=== PATIENT | female | born 1995 | race Caucasian/White ===

== ENCOUNTER 2018-02-03 22:00 | Inpatient (IN) | payer OTHER ==
[2018-02-03 23:17] LABS: HEMATOCRIT 36.4 % (36.0-47.0); HEMOGLOBIN 12.6 g/dL (12.0-15.5); MEAN CORPUSCULAR HEMOGLOBIN 29.9 pg (27.0-33.4); MEAN CORPUSCULAR HGB CONC 34.6 g/dL (32.0-36.0); MEAN CORPUSCULAR VOLUME 86 fl (80-97); PLATELET COUNT 182 10^3/uL (150-450); RED BLOOD COUNT 4.23 10^6/uL (3.72-5.28); RED CELL DISTRIBUTION WIDTH 14.1 % (11.5-14.0); WHITE BLOOD COUNT 14.4 10^3/uL (4.0-10.5)
[2018-02-03 23:31] LABS: ALANINE AMINOTRANSFERASE 245 U/L (9-52); ALBUMIN 3.7 g/dL (3.5-5.0); ALKALINE PHOSPHATASE 353 U/L (38-126); ANION GAP 11 (5-19); ASPARTATE AMINO TRANSFERASE 233 U/L (14-36); BILIRUBIN,DIRECT 0.6 mg/dL (0.0-0.4); BILIRUBIN,TOTAL 0.8 mg/dL (0.2-1.3); BLOOD UREA NITROGEN 11 mg/dL (7-20); CARBON DIOXIDE 24 mmol/L (22-30); CHLORIDE 105 mmol/L (98-107); GLUCOSE 95 mg/dL (75-110); LIPASE 71.8 U/L (23-300); POTASSIUM 4.2 mmol/L (3.6-5.0); SODIUM 140.2 mmol/L (137-145); TOTAL PROTEIN 7.6 g/dL (6.3-8.2)
[2018-02-03 23:38] LABS: ABSOLUTE LYMPHOCYTES# (MANUAL) 9.2 10^3/uL (0.5-4.7); ABSOLUTE MONOCYTES # (MANUAL) 1.9 10^3/uL (0.1-1.4); ABSOLUTE NEUTROPHILS# (MANUAL) 3.3 10^3/uL (1.7-8.2); BAND NEUTROPHILS % (MANUAL) 1 % (3-5); BASOPHILS % (MANUAL) 0 % (0-2); EOSINOPHILS % (MANUAL) 0 % (0-6); LYMPHOCYTES % (MANUAL) 56 % (13-45); METAMYELOCYTES % (MANUAL) 1 % (0); MONOCYTES % (MANUAL) 13 % (3-13); SEGMENTED NEUTROPHILS % (MAN) 21 % (42-78); TOTAL CELLS COUNTED 100
[2018-02-03 23:39] LABS: PLATELET COMMENT ADEQUATE; RBC MORPHOLOGY COMMENT NORMO-CYTIC/CHROMIC
[2018-02-04] MEDS ORDERED: PROMETHAZINE HCL INJ 25 MG/1 ML VIAL IM ONE (00:35)
[2018-02-04 00:36] LABS: APPEARANCE,URINE CLOUDY; BILIRUBIN,URINE NEGATIVE (NEGATIVE); COLOR,URINE AMBER; GLUCOSE, URINE NEGATIVE (NEGATIVE); KETONES,URINE NEGATIVE (NEGATIVE); LEUKOCYTE ESTERASE,URINE LARGE (NEGATIVE); NITRITE,URINE NEGATIVE (NEGATIVE); PROTEIN,URINE NEGATIVE (NEGATIVE); URINE SPECIFIC GRAVITY 1.018
[2018-02-04] MEDS: NORMAL SALINE 1000 ML 1,000 ML IV PRN ×5 (01:27→14:47)
--- NOTE | 2018-02-04 03:35 | RADIOLOGY REPORT (SQ) ---
EXAM DESCRIPTION: US RETROPERITONEUM CLINICAL HISTORY: 22 years Female, right sided pain COMPARISON: None. TECHNIQUE/LIMITATION: Transabdominal. No Limitation. FINDINGS: 10.3 cm right kidney, 10.9 cm left kidney, and urinary bladder appear normal. Bilateral ureteral jets flow demonstrated at the urinary bladder. IMPRESSION: Normal renal sonogram.
--- NOTE | 2018-02-04 03:40 | RADIOLOGY REPORT (SQ) ---
EXAM DESCRIPTION: US ABDOMEN DOPPLER LIMITED CLINICAL HISTORY: 22 years Female, elevated liver enzymes Comparison: None. LIMITATIONS: None. FINDINGS: Cholecystectomy, liver, a 0.4-cm diameter common bile duct, no intrahepatic ductal dilation, 10-cm right kidney, partially obscured pancreas, visualized vasculature/abdominal aorta, and no significant ascites appear otherwise unremarkable. IMPRESSION: No acute findings. Cholecystectomy.
[2018-02-04] MEDS ORDERED: GENTAMICIN SULFATE INJ 80 MG/2 ML VIAL IV ONE (04:01)
--- NOTE | 2018-02-04 04:07 | ER Document Report ---
ED General - General Chief Complaint: Flank Pain Stated Complaint: VOMITING Time Seen by Provider: 02/04/18 00:27 Notes: Patient is a 22-year-old female presents with complaint of urinary tract infection. She has pain in the right back that radiates around the flank. She has noticed some blood in her urine. She has been having dysuria. She has been seen twice at . The first time was over week ago and she is placed on Bactrim. She not improving therefore she was switched to Cipro. She says that over last 2 days she started vomiting has been unable to keep down the Cipro and feels like she is getting worse and has had fevers at home. She denies abnormal vaginal discharge or bleeding. She said she did have a CT scan. She says she was initially told the CT scan was completely negative. She was then told about 2 days later that she had a very small stone in her kidney. She denies previous history of kidney stones. She has no other complaints at this time. TRAVEL OUTSIDE OF THE [place] IN LAST 30 DAYS: No - Related Data Allergies/Adverse Reactions: amoxicillin Allergy (Verified 02/03/18 22:10) Past Medical History - Social History Smoking Status: Never Smoker Chew tobacco use (# tins/day): No Frequency of alcohol use: None Drug Abuse: None Family History: Reviewed & Not Pertinent Patient has suicidal ideation: No Patient has homicidal ideation: No Renal/ Medical History: Denies: Hx Peritoneal Dialysis Review of Systems - Review of Systems Notes: My Normal Review Basic REVIEW OF SYSTEMS: CONSTITUTIONAL : fevers. EENT: Denies eye, ear, throat, or mouth pain or symptoms. Denies nasal or sinus congestion. RESPIRATORY: Denies cough, cold, or chest congestion. Denies shortness of breath, difficulty breathing, or wheezing. GASTROINTESTINAL: Denies abdominal pain. Denies nausea, vomiting, or diarrhea. Denies constipation. Last BM: GENITOURINARY: Dysuria. Recent urinary tract infection. FEMALE GENITOURINARY: Denies vaginal bleeding, abnormal or irregular periods. MUSCULOSKELETAL: right Sided back pain. SKIN: Denies rash or skin lesions. NEUROLOGICAL: Denies altered mental status or loss of consciousness. Denies headache. Denies weakness or paralysis or loss of use of either side. Denies problems with gait or speech. Denies sensory or motor loss. ALL OTHER SYSTEMS REVIEWED AND NEGATIVE. Physical Exam - Notes Notes: General Appearance: Well nourished, alert, cooperative, no acute distress, no obvious discomfort. Vitals: reviewed, See vital signs table. Head: no swelling or tenderness to the head Eyes: PERRL, EOMI, Conjuctiva clear Mouth: No decreasd moisture Lungs: No wheezing, No rales, No rhonci, No accessory muscle use, good air exchange bilaterally. Heart: Normal rate, Regular rythm, No murmur, no rub Abdomen: Normal BS, soft, No rigidity, No abdominal tenderness, No guarding, no rebound, no abdominal masses, no organomegaly Back: Positive Derrick's sign on the right. Extremities: strength 5/5 in all extremities, good pulses in all extremities, no swelling or tenderness in the extremities, no edema. Skin: warm, dry, appropriate color, no rash Neuro: speech clear, oriented x 3, normal affect, responds appropriately to questions. Course - Re-evaluation Re-evalutation: 02/04/18 04:21 Patient has what appears to be a recurrent pyelonephritis. I have requested records from [facility] to get her urine culture results as well as rest of her labs and ER documentation. Her heart rate is improved after the IV fluids. Blood pressures systolically in the 90s. Being that the patient has had recurrent urine tract infections with appears to be failure to outpatient antibiotics felt appropriate to admit her to the hospital. I did speak with the hospitalist , Dr. Vincent, agrees with the patient. I have ordered gentamicin for the patient being that the patient did not improve with Cipro or Bactrim and also because the patient said she was given a IV antibiotic and able that was a "cousin to penicillin" she developed hives. Dictation of this chart was performed using voice recognition software; therefore, there may be some unintended grammatical errors. - Laboratory Result Diagrams: 02/03/18 22:49 02/03/18 22:49 Laboratory results interpreted by me: 02/03/18 02/03/18 02/03/18 22:15 22:49 22:49 WBC 14.4 H RDW 14.1 H Seg Neuts % (Manual) 21 L Band Neutrophils % 1 L Lymphocytes % (Manual) 56 H Metamyelocytes % 1 H Abs Lymphs (Manual) 9.2 H Abs Monocytes (Manual) 1.9 H Direct Bilirubin 0.6 H AST 233 H ALT 245 H Alkaline Phosphatase 353 H Urine Blood LARGE H Urine Urobilinogen 4.0 H Ur Leukocyte Esterase LARGE H Discharge - Discharge Clinical Impression: Pyelonephritis Condition: Stable Disposition: ADMITTED OBSERVATION Admitting Provider: Hospitalist Unit Admitted: Medical Floor
[2018-02-04] MEDS ORDERED: ACETAMINOPHEN 325 MG TABLET PO ONE (04:08)
[2018-02-04] MEDS ORDERED: MAGNESIUM HYDROXIDE SUSP 30 ML UDCUP PO PRN (04:09)
[2018-02-04] MEDS: HEPARIN SOD (PORCINE) 5,000 UNIT/ML 1 ML SYRINGE SUBCUT SCH ×3 (05:50→21:35)
[2018-02-04] MEDS ORDERED: GENTAMICIN SULFATE 0 MG in DEXTROSE 5%-WATER 100 ML IV NR (06:15)
--- NOTE | 2018-02-04 06:17 | PDOC H&P ---
History of Present Illness Admission Date/PCP: 02/04/18 04:33 Patient complains of: Right-sided flank pain History of Present Illness: MARGY ARVIZU is a 22 year old female with history of migraine and approximately 7 days of flank pain. She presents after diagnosis of urinary tract infection by [facility]. Treated with Bactrim 48 hours initially without clinical improvement she was switched to ciprofloxacin 72 hours. Patient reports urine culture suggested a mixed shena. Patient remains symptomatic with fever of 100.1 right-sided flank pain radiating to the groin with 5 days of Tylenol and antibiotics as above. In the emergency room she is found to have an unremarkable abdominal and renal ultrasound. But a urinalysis suggestive of pyuria and CBC with leukocytosis. She is started on gentamicin given history of penicillin allergy and presumed failure of the Cipro and Bactrim. She denies previous episode or nephrolithiasis. Past Medical History Medical History: None Past Surgical History Past Surgical History: Reports: Cholecystectomy Social History Information Source: Patient Lives with: Family Smoking Status: Never Smoker Frequency of Alcohol Use: None Drugs: None - Advance Directive Resuscitation Status: Full Code Family History Family History: DM, Hypertension Parental Family History Reviewed: Yes Children Family History Reviewed: Yes Sibling(s) Family History Reviewed.: Yes Medication/Allergy Allergies/Adverse Reactions: amoxicillin Allergy (Verified 02/03/18 22:10) Review of Systems Constitutional: ABSENT: chills, fever(s), headache(s), weight gain, weight loss Eyes: ABSENT: visual disturbances Ears: ABSENT: hearing changes Cardiovascular: ABSENT: chest pain, dyspnea on exertion, edema, orthropnea, palpitations Respiratory: ABSENT: cough, hemoptysis Gastrointestinal: ABSENT: abdominal pain, constipation, diarrhea, hematemesis, hematochezia, nausea, vomiting Genitourinary: ABSENT: dysuria, hematuria Musculoskeletal: ABSENT: joint swelling Integumentary: ABSENT: rash, wounds Neurological: ABSENT: abnormal gait, abnormal speech, confusion, dizziness, focal weakness, syncope Psychiatric: ABSENT: anxiety, depression, homidical ideation, suicidal ideation Endocrine: ABSENT: cold intolerance, heat intolerance, polydipsia, polyuria Hematologic/Lymphatic: ABSENT: easy bleeding, easy bruising Physical Exam Vital Signs: Temp Pulse Resp BP Pulse Ox 103/57 L 96 02/04/18 05:06 02/04/18 05:06 General appearance: PRESENT: cooperative, mild distress, morbidly obese Head exam: PRESENT: atraumatic, normocephalic Eye exam: PRESENT: conjunctiva pink, EOMI, PERRLA. ABSENT: scleral icterus Ear exam: PRESENT: normal external ear exam Mouth exam: PRESENT: moist, tongue midline Neck exam: ABSENT: carotid bruit, JVD, lymphadenopathy, thyromegaly Respiratory exam: PRESENT: clear to auscultation oli. ABSENT: rales, rhonchi, wheezes Cardiovascular exam: PRESENT: RRR. ABSENT: diastolic murmur, rubs, systolic murmur Pulses: PRESENT: normal dorsalis pedis pul Vascular exam: PRESENT: normal capillary refill GI/Abdominal exam: PRESENT: normal bowel sounds, soft, tenderness - Right flank and right lower quadrant. ABSENT: ascites, diminished bowel sounds, distended, guarding, mass, organolmegaly, rebound Rectal exam: PRESENT: deferred Extremities exam: PRESENT: full ROM. ABSENT: calf tenderness, clubbing, pedal edema Neurological exam: PRESENT: alert, awake, oriented to person, oriented to place , oriented to time, oriented to situation, CN II-XII grossly intact. ABSENT: motor sensory deficit Psychiatric exam: PRESENT: appropriate affect, normal mood. ABSENT: homicidal ideation, suicidal ideation Skin exam: PRESENT: dry, intact, warm. ABSENT: cyanosis, rash Results Impressions: Renal Ultrasound 02/04/18 00:35 IMPRESSION: Normal renal sonogram. Abdomen Ultrasound 02/04/18 00:36 IMPRESSION: No acute findings. Cholecystectomy. Assessment & Plan - Diagnosis (1) Sepsis Is this a current diagnosis for this admission?: Yes Plan: IV fluid challenge, empiric antibiotics gentamicin and doxycycline given antibiotic failure and penicillin allergy. Follow-up blood and urine culture (2) Pyelonephritis Is this a current diagnosis for this admission?: Yes Plan: Please see #1 (3) LFT elevation Is this a current diagnosis for this admission?: Yes Plan: Fatty liver versus medication. Hold hepatotoxic meds, reevaluate LFTs - Time Time Spent: 30 to 50 Minutes - Inpatient Certification Medical Necessity: Need Close Monitoring Due to Risk of Patient Decompensation
[2018-02-04] MEDS ORDERED: DOXYCYCLINE HYCLATE INJ 100 MG VIAL IV PRN (06:19)
[2018-02-04] MEDS ORDERED: DOXYCYCLINE HYCLATE 200 MG in DEXTROSE 5%-WATER 250 ML IV ONE (06:30)
[2018-02-04 07:06] LABS: HEMATOCRIT 31.9 % (36.0-47.0); HEMOGLOBIN 10.6 g/dL (12.0-15.5); MEAN CORPUSCULAR HEMOGLOBIN 28.7 pg (27.0-33.4); MEAN CORPUSCULAR HGB CONC 33.4 g/dL (32.0-36.0); MEAN CORPUSCULAR VOLUME 86 fl (80-97); PLATELET COUNT 164 10^3/uL (150-450)
[2018-02-04 07:22] LABS: ALANINE AMINOTRANSFERASE 204 U/L (9-52); ALKALINE PHOSPHATASE 278 U/L (38-126); ANION GAP 9 (5-19); ASPARTATE AMINO TRANSFERASE 191 U/L (14-36); BILIRUBIN,DIRECT 0.4 mg/dL (0.0-0.4); BILIRUBIN,TOTAL 0.6 mg/dL (0.2-1.3); BLOOD UREA NITROGEN 9 mg/dL (7-20); CARBON DIOXIDE 24 mmol/L (22-30); CHLORIDE 111 mmol/L (98-107); GLUCOSE 87 mg/dL (75-110); POTASSIUM 3.8 mmol/L (3.6-5.0); TOTAL PROTEIN 6.3 g/dL (6.3-8.2)
[2018-02-04 07:29] LABS: ABSOLUTE MONOCYTES # (MANUAL) 0.6 10^3/uL (0.1-1.4); ABSOLUTE NEUTROPHILS# (MANUAL) 2.3 10^3/uL (1.7-8.2); BASOPHILS % (MANUAL) 1 % (0-2); EOSINOPHILS % (MANUAL) 0 % (0-6); LYMPHOCYTES % (MANUAL) 69 % (13-45); METAMYELOCYTES % (MANUAL) 1 % (0); MONOCYTES % (MANUAL) 5 % (3-13); SEGMENTED NEUTROPHILS % (MAN) 20 % (42-78); TOTAL CELLS COUNTED 100
[2018-02-04 07:31] LABS: ANISOCYTOSIS SLIGHT; TOXIC GRANULATION 1+
[2018-02-04 07:32] LABS: PLATELET COMMENT ADEQUATE
[2018-02-04] MEDS: DOCUSATE SODIUM 100 MG CAPSULE PO SCH ×2 (10:10→17:31)
[2018-02-04] MEDS: DOXYCYCLINE HYCLATE 200 MG in DEXTROSE 5%-WATER 250 ML IV SCH ×2 (10:10→23:32)
[2018-02-04] MEDS: ACETAMINOPHEN 325 MG TABLET PO PRN ×3 (12:03→21:50)
--- NOTE | 2018-02-04 12:12 | Progress Note ---
Provider Note Provider Note: This is a 28-year-old female patient admitted this morning with chief complaint of flank pain due to pyelonephritis. Reportedly patient has been treated with Bactrim and ciprofloxacin to no avail. I seen and examined the patient at bedside. I will assume the role of primary attending for her.
[2018-02-04] MEDS ORDERED: GENTAMICIN SULFATE 180 MG in DEXTROSE 5%-WATER 100 ML IV SCH (14:00)
[2018-02-04] MEDS: GENTAMICIN SULFATE IV SCH ×2 (16:26→21:24)
[2018-02-04] MEDS: NORMAL SALINE IV SCH ×2 (16:26→21:24)
[2018-02-04] MEDS ORDERED: DOXYCYCLINE HYCLATE 200 MG in DEXTROSE 5%-WATER 250 ML IV SCH (18:00)
[2018-02-05] MEDS: GENTAMICIN SULFATE IV SCH ×3 (06:03→21:30)
[2018-02-05] MEDS: NORMAL SALINE IV SCH ×3 (06:03→21:30)
[2018-02-05] MEDS: HEPARIN SOD (PORCINE) 5,000 UNIT/ML 1 ML SYRINGE SUBCUT SCH ×3 (06:09→21:30)
[2018-02-05 07:01] LABS: ALANINE AMINOTRANSFERASE 235 U/L (9-52); ALKALINE PHOSPHATASE 310 U/L (38-126); ANION GAP 10 (5-19); ASPARTATE AMINO TRANSFERASE 212 U/L (14-36); BILIRUBIN,DIRECT 0.5 mg/dL (0.0-0.4); BILIRUBIN,TOTAL 0.5 mg/dL (0.2-1.3); BLOOD UREA NITROGEN 6 mg/dL (7-20); CALCIUM 8.2 mg/dL (8.4-10.2); CARBON DIOXIDE 23 mmol/L (22-30); CHLORIDE 109 mmol/L (98-107); GLUCOSE 91 mg/dL (75-110); SODIUM 141.6 mmol/L (137-145); TOTAL PROTEIN 6.3 g/dL (6.3-8.2)
[2018-02-05 07:12] LABS: HEMATOCRIT 34.6 % (36.0-47.0); HEMOGLOBIN 11.7 g/dL (12.0-15.5); MEAN CORPUSCULAR HEMOGLOBIN 29.1 pg (27.0-33.4); MEAN CORPUSCULAR HGB CONC 33.7 g/dL (32.0-36.0); MEAN CORPUSCULAR VOLUME 86 fl (80-97); PLATELET COUNT 186 10^3/uL (150-450); RED BLOOD COUNT 4.01 10^6/uL (3.72-5.28); RED CELL DISTRIBUTION WIDTH 14.3 % (11.5-14.0); WHITE BLOOD COUNT 12.9 10^3/uL (4.0-10.5)
[2018-02-05 07:33] LABS: ABSOLUTE LYMPHOCYTES# (MANUAL) 9.2 10^3/uL (0.5-4.7); ABSOLUTE MONOCYTES # (MANUAL) 0.3 10^3/uL (0.1-1.4); ABSOLUTE NEUTROPHILS# (MANUAL) 3.4 10^3/uL (1.7-8.2); ANISOCYTOSIS SLIGHT; BASOPHILS % (MANUAL) 0 % (0-2); EOSINOPHILS % (MANUAL) 1 % (0-6); LYMPHOCYTES % (MANUAL) 71 % (13-45); METAMYELOCYTES % (MANUAL) 2 % (0); MONOCYTES % (MANUAL) 2 % (3-13); PLATELET COMMENT ADEQUATE; SEGMENTED NEUTROPHILS % (MAN) 24 % (42-78); TOTAL CELLS COUNTED 100
[2018-02-05] MEDS: DOXYCYCLINE HYCLATE 200 MG in DEXTROSE 5%-WATER 250 ML IV SCH ×2 (09:12→23:00)
[2018-02-05] MEDS: DOCUSATE SODIUM 100 MG CAPSULE PO SCH ×2 (09:12→17:30)
--- NOTE | 2018-02-05 10:34 | PDOC PROGRESS REPORT ---
Subjective Progress Note for:: 02/05/18 Subjective:: Patient reports having restful night. No new complaint. Reason For Visit: SEPSIS UTI NEPHROLITH Physical Exam Vital Signs: Temp Pulse Resp BP Pulse Ox 99.2 F 99 16 123/75 99 02/05/18 08:06 02/05/18 08:06 02/05/18 08:06 02/05/18 08:06 02/05/18 08:06 Intake & Output 02/04/18 02/05/18 02/06/18 06:59 06:59 06:59 Intake Total 0 1840 Output Total 1900 Balance 0 -60 Weight 108.9 kg General appearance: PRESENT: no acute distress Eye exam: PRESENT: conjunctiva pink, EOMI, PERRLA. ABSENT: scleral icterus Neck exam: ABSENT: carotid bruit, JVD, lymphadenopathy, thyromegaly Respiratory exam: PRESENT: clear to auscultation oli. ABSENT: rales, rhonchi, wheezes Cardiovascular exam: PRESENT: RRR. ABSENT: diastolic murmur, rubs, systolic murmur GI/Abdominal exam: PRESENT: normal bowel sounds, soft. ABSENT: distended, guarding, mass, organolmegaly, rebound, tenderness Gentrourinary exam: PRESENT: other - left flank tenderness Results Laboratory Results: 02/05/18 06:27 02/05/18 06:27 02/05/18 02/05/18 06:27 06:27 WBC 12.9 H RBC 4.01 Hgb 11.7 L Hct 34.6 L MCV 86 MCH 29.1 MCHC 33.7 RDW 14.3 H Plt Count 186 Seg Neutrophils % Not Reportable Lymphocytes % Not Reportable Monocytes % Not Reportable Eosinophils % Not Reportable Basophils % Not Reportable Absolute Neutrophils Not Reportable Absolute Lymphocytes Not Reportable Absolute Monocytes Not Reportable Absolute Eosinophils Not Reportable Absolute Basophils Not Reportable Sodium 141.6 Potassium 4.0 Chloride 109 H Carbon Dioxide 23 Anion Gap 10 BUN 6 L Creatinine 0.55 Est GFR ( Amer) > 60 Est GFR (Non-Af Amer) > 60 Glucose 91 Calcium 8.2 L Total Bilirubin 0.5 AST 212 H ALT 235 H Alkaline Phosphatase 310 H Total Protein 6.3 Albumin 3.0 L Impressions: Renal Ultrasound 02/04/18 00:35 IMPRESSION: Normal renal sonogram. Abdomen Ultrasound 02/04/18 00:36 IMPRESSION: No acute findings. Cholecystectomy. Assessment & Plan - Diagnosis (1) Pyelonephritis Is this a current diagnosis for this admission?: Yes Plan: continue Levaquin (2) Sepsis Is this a current diagnosis for this admission?: Yes Plan: As #1 - Time Time Spent with patient: 25-34 minutes
[2018-02-05 14:44] LABS: GENTAMICIN-TROUGH 1.4 ug/mL (<2.0)
[2018-02-05 17:44] LABS: GENTAMICIN-PEAK 6.3 ug/mL (5.0-10.0)
[2018-02-05] MEDS: ACETAMINOPHEN 325 MG TABLET PO PRN (19:35)
[2018-02-06] MEDS: HEPARIN SOD (PORCINE) 5,000 UNIT/ML 1 ML SYRINGE SUBCUT SCH (06:32)
[2018-02-06] MEDS: GENTAMICIN SULFATE IV SCH (06:32)
[2018-02-06] MEDS: NORMAL SALINE IV SCH (06:32)
--- NOTE | 2018-02-06 08:03 | PDOC DISCHARGE SUMMARY ---
General - Admit/Disc Date/PCP Admission Date/Primary Care Provider: 02/04/18 04:33 Discharge Date: 02/06/18 - Discharge Diagnosis (1) Pyelonephritis Is this a current diagnosis for this admission?: Yes (2) Sepsis Is this a current diagnosis for this admission?: Yes - Additional Information Resuscitation Status: Full Code Discharge Diet: Regular Discharge Activity: Activity As Tolerated Prescriptions: Levofloxacin [Levaquin 750 mg Tablet] 750 mg PO DAILY 5 Days #5 tablet Home Medications: Loratadine [Claritin] 10 mg PO DAILYP PRN 02/04/18 Multivit-Minerals/Folic Acid [One-A-Day Vitacraves Gummies] 200 mcg PO DAILY Levofloxacin [Levaquin 750 mg Tablet] 750 mg PO DAILY 5 Days #5 tablet 02/06/18 History of Present Illness History of Present Illness: MARGY ARVIZU is a 22 year old female with history of migraine and approximately 7 days of flank pain. She presents after diagnosis of urinary tract infection by [facility]. Treated with Bactrim 48 hours initially without clinical improvement she was switched to ciprofloxacin 72 hours. Patient reports urine culture suggested a mixed shena. Patient remains symptomatic with fever of 100.1 right-sided flank pain radiating to the groin with 5 days of Tylenol and antibiotics as above. In the emergency room she is found to have an unremarkable abdominal and renal ultrasound. But a urinalysis suggestive of pyuria and CBC with leukocytosis. She is started on gentamicin given history of penicillin allergy and presumed failure of the Cipro and Bactrim. She denies previous episode or nephrolithiasis. Hospital Course Hospital Course: This is 22 YO female admitted for sepsis due to pyelonepritis.Patient failed out patient po two antibiotics treatment.She has been treated with IV levaquin.Patient has responded well, her flank pain and fever subsided and she has been eating and tolerating well .This morning patient seen and exmined at bed side. She is awake , alert and oriented. Her vitals are WNL and she is discharged in stable condition.She is prescribed po Levaquin for 5 days. Physical Exam Vital Signs: Temp Pulse Resp BP Pulse Ox 98.4 F 97 16 109/59 L 96 02/06/18 03:49 02/06/18 03:49 02/06/18 03:49 02/06/18 03:49 02/06/18 03:49 Intake & Output 02/05/18 02/06/18 02/07/18 06:59 06:59 06:59 Intake Total 1840 800 Output Total 1900 500 Balance -60 300 Weight 111 kg General appearance: PRESENT: no acute distress, well-developed, well-nourished Head exam: PRESENT: atraumatic, normocephalic Eye exam: PRESENT: conjunctiva pink, EOMI, PERRLA. ABSENT: scleral icterus Neck exam: ABSENT: carotid bruit, JVD, lymphadenopathy, thyromegaly Respiratory exam: PRESENT: clear to auscultation oli. ABSENT: rales, rhonchi, wheezes Cardiovascular exam: PRESENT: RRR. ABSENT: diastolic murmur, rubs, systolic murmur GI/Abdominal exam: PRESENT: normal bowel sounds, soft. ABSENT: distended, guarding, mass, organolmegaly, rebound, tenderness Extremities exam: PRESENT: full ROM. ABSENT: calf tenderness, clubbing, pedal edema Neurological exam: PRESENT: alert, awake, oriented to person, oriented to place , oriented to time, oriented to situation, CN II-XII grossly intact. ABSENT: motor sensory deficit Psychiatric exam: PRESENT: appropriate affect, normal mood. ABSENT: homicidal ideation, suicidal ideation Results Laboratory Results: 02/05/18 06:27 02/05/18 06:27 Impressions: Renal Ultrasound 02/04/18 00:35 IMPRESSION: Normal renal sonogram. Abdomen Ultrasound 02/04/18 00:36 IMPRESSION: No acute findings. Cholecystectomy. Qualifiers - * PATIENT BEING DISCHARGED WITH ANY OF THE FOLLOWING DIAGNOSIS: No
[2018-02-06 09:17] VITALS: BP 113/65
== END 2018-02-06 10:00 | disposition home or self-care (01) | DRG 872 ==
LOC: ER 22:00 → EH 02-04 04:33 → OBSVTOIN 02-04 04:33 → 2N 02-04 05:25
PROVIDERS: ADMIT Internal Medicine; ATTEND Internal Medicine
DX: A41.9 Sepsis, unspecified organism (principal); N12 Tubulo-interstitial nephritis, not specified as acute or chronic; G43.909 Migraine, unspecified, not intractable, without status migrainosus; Z88.0 Allergy status to penicillin; Z90.49 Acquired absence of other specified parts of digestive tract; Z83.3 Family history of diabetes mellitus; Z82.49 Family history of ischemic heart disease and other diseases of the circulatory system
CPT/HCPCS: 36415; 76705; 76770; 80053; 80170; 81001; 81025; 83690; 85025; 87040; 87086; 93976; 96361; 96365; 96372; 99285; J1580; J1644; J2550; J3490; J7030; J7060

== ENCOUNTER 2018-03-29 17:01 | Emergency (ER) | payer OTHER ==
[2018-03-29 17:07] VITALS: BP 128/71
[2018-03-29] MEDS ORDERED: ACETAMINOPHEN 325 MG TABLET PO ONE (17:35)
--- NOTE | 2018-03-29 17:39 | ER Document Report ---
ED Extremity Problem, Lower - General Chief Complaint: Ankle Injury Stated Complaint: FALL/ANKLE PAIN Time Seen by Provider: 03/29/18 17:20 Mode of Arrival: Wheelchair Information source: Patient Notes: 22-year-old female presents to ED for complaint of pain to the left ankle. She states she fell down the stairs on because she was clumsy causing an abrasion to her leg then she fell Wednesday on her way home from work causing pain to the ankle. She states she has been trying to walk on it but is too painful to walk on now. Patient is alert oriented respirations regular and unlabored speaks in full sentences and actually stood up at the bedside pivoted and sat down on the bed. TRAVEL OUTSIDE OF THE [place] IN LAST 30 DAYS: No - HPI Patient complains to provider of: Injury, Pain, Swelling Location: Ankle - Left Occurred: Other - Wednesday Quality of pain: Throbbing Severity: Moderate Pain Level: 4 Context: Fell, Other - During her ankle Recent injury: Yes Associated symptoms: Painful ambulation Exacerbated by: Hanging down, Movement, Walking Relieved by: Elevation, Ice, Rest - Related Data Allergies/Adverse Reactions: amoxicillin Allergy (Verified 02/03/18 22:10) Past Medical History - General Information source: Patient - Social History Smoking Status: Never Smoker Cigarette use (# per day): No Chew tobacco use (# tins/day): No Smoking Education Provided: No Frequency of alcohol use: None Drug Abuse: None Lives with: Family Family History: DM, Hypertension Patient has suicidal ideation: No Patient has homicidal ideation: No - Past Medical History Cardiac Medical History: Reports: None Pulmonary Medical History: Reports: None EENT Medical History: Reports: None Neurological Medical History: Reports: None Endocrine Medical History: Reports: None Renal/ Medical History: Reports: Other - Frequent kidney infections Malignancy Medical History: Reports: None GI Medical History: Reports: None Musculoskeletal Medical History: Reports Hx Musculoskeletal Deformity, Reports Hx Musculoskeletal Trauma Skin Medical History: Reports None Psychiatric Medical History: Reports: None Past Surgical History: Reports: Hx Adenoidectomy, Hx Cholecystectomy, Hx Gynecologic Surgery - Nexplanon, Hx Orthopedic Surgery - knee surgery, Hx Tonsillectomy - Immunizations Immunizations up to date: Yes Hx Diphtheria, Pertussis, Tetanus Vaccination: Yes Review of Systems - Review of Systems Constitutional: No symptoms reported EENT: No symptoms reported Cardiovascular: No symptoms reported Respiratory: No symptoms reported Gastrointestinal: No symptoms reported Genitourinary: No symptoms reported Female Genitourinary: No symptoms reported Musculoskeletal: Ankle swelling - Pain swelling left ankle with bruising to the left calf Skin: Change in color - Left calf and ankle Hematologic/Lymphatic: No symptoms reported Neurological/Psychological: No symptoms reported -: Yes All other systems reviewed and negative Physical Exam - Vital signs Vitals: Temp Pulse Resp BP Pulse Ox 98.9 F 92 18 128/71 H 99 03/29/18 17:05 03/29/18 17:05 03/29/18 17:05 03/29/18 17:05 03/29/18 17:05 Interpretation: Normal - General General appearance: Appears well, Alert - HEENT Head: Normocephalic, Atraumatic Eyes: Normal Pupils: PERRL - Respiratory Respiratory status: No respiratory distress Chest status: Nontender Breath sounds: Normal Chest palpation: Normal - Cardiovascular Rhythm: Regular Heart sounds: Normal auscultation Murmur: No - Abdominal Inspection: Normal Distension: No distension Bowel sounds: Normal Tenderness: Nontender Organomegaly: No organomegaly - Back Back: Normal, Nontender - Extremities General upper extremity: Normal inspection, Nontender, Normal color, Normal ROM , Normal temperature General lower extremity: Normal temperature. No: Don's sign Calf: Tender, Ecchymosis Ankle: Tender, Ecchymosis, Edema, Limited ROM - Due to pain. No: Unable to bear weight - Painful ambulation - Neurological Neuro grossly intact: Yes Cognition: Normal Orientation: AAOx4 [place] Coma Scale Eye Opening: Spontaneous Kevin Coma Scale Verbal: Oriented [place] Coma Scale Motor: Obeys Commands Kevin Coma Scale Total: 15 Speech: Normal Motor strength normal: LUE, RUE, LLE, RLE Sensory: Normal - Psychological Associated symptoms: Normal affect, Normal mood - Skin Skin Temperature: Warm Skin Moisture: Dry Skin Color: Normal Course - Re-evaluation Re-evalutation: 03/29/18 17:51 Discussed x-ray with patient and family and written report of x-ray given to patient. Patient was treated with a stirrup splint Keith wrap and crutches. Patient was instructed on elevation ice and ibuprofen. Patient to follow-up with primary doctor and orthopedics. The patient is nontoxic appearing with stable vitals. They are afebrile. Ankle exam shows no deformities with no obvious ligament instability. There is a normal pulse and sensation distally. There is no redness or signs of infection. X-rays show no acute fract Patient will be instructed to follow-up with not better in 1 week, sooner for increasing pain, fever, redness, numbness, tingling, weakness, any further concerns. Patient will be instructed to rest, ice, elevate their ankle. - Vital Signs Vital signs: Temp Pulse Resp BP Pulse Ox 98.9 F 92 18 128/71 H 99 03/29/18 17:05 03/29/18 17:05 03/29/18 17:05 03/29/18 17:05 03/29/18 17:05 - Diagnostic Test Radiology reviewed: Image reviewed, Reports reviewed Procedures - Immobilization Left Ankle Time completed: 18:05 Immobilizer type: Keith wrap, Ankle stirrup, Crutches Performed by: TRACIE Post-Proc Neuro Vasc Exam: Normal Alignment checked and good: Yes Discharge - Discharge Clinical Impression: Left ankle sprain Qualifiers: Encounter type: initial encounter Involved ligament of ankle: unspecified ligament Qualified Code(s): S93.402A - Sprain of unspecified ligament of left ankle, initial encounter Condition: Stable Disposition: HOME, SELF-CARE Additional Instructions: SPRAINED ANKLE: Your sprained ankle results from stretching or tearing of the ligaments which support the ankle. This usually results from twisting the foot inward and under. The ligaments will require time and protection in order to heal properly. Many ankle sprains are quite disabling, and should be taken seriously. The usual treatment for an ankle sprain is cold packs; protection with tape , splints, or wraps; elevation; and staying off the ankle for at least a day. As the ankle improves, you can walk IF it's not painful to bear weight. Sports are best postponed until healing is complete. More serious sprains usually require strengthening exercises after early healing. Your physician has assessed the seriousness of the ligament injury to your ankle. However, the treatment may change, depending on how your ankle progresses. If further exams were recommended, it is important that you follow through. Call the doctor if your foot becomes numb, painful, or severely swollen. KEITH WRAP: A compression dressing (keith wrap) has been placed. This helps hold the area still. It limits swelling and internal bleeding. The wrap should be comfortably snug -- not tight. You should feel a sense of pressure, but not severe pain under the wrap. Unless the physician tells you otherwise, you can adjust the wrap for comfort. If the wrap causes symptoms suggesting it's too tight -- uncomfortable pressure, swelling or discoloration beyond the wrap, numbness, or severe pain - - you must loosen the wrap. If these symptoms don't resolve promptly, return for re-evaluation. ANKLE STIRRUP SPLINT: You are to use an ankle brace called a stirrup splint. This type of brace allows you to place greater stresses on the ankle without risk of re-injury, and is often used for more severe ankle injuries such as avulsion fractures and ligament ruptures. The splint can be worn over a sock or tape. For proper support, wear the splint with a shoe over it. It's important that the splint fit properly. Adjust the heel tension, if needed. If your splint has air bladders, peel back the bottom of each air bladder, then move the Velcro attachment of the heel strap up or down. Air bladder pressure can be adjusted by pulling up the valve at the top, threading the air tube down into the main bladder, then blowing air into the bladder or squeezing it out. The two sides of the stirrup can be moved forward or back on your ankle by changing the attachment of the main straps. If you are unable to use the ankle comfortably in the splint, return for re -evaluation. USE OF CRUTCHES: The doctor has recommended that you not bear weight at this time. You will need to use crutches. Adjust the crutches so the tops come to about two inches under the armpit while you are standing upright. Use your hands -- not your armpits -- to support your weight. To get into a chair, support yourself with one crutch on the injured side. Hold the chair with the other hand, then lower yourself while putting all your weight on the good leg. Going up stairs is `good leg up, step up, then bring up crutches and bad leg.' Down stairs is `bad leg and crutches down, then bring good leg down.' If you develop numbness or swelling in an arm or hand, you are using the crutches incorrectly. Return if you are having any problems with the crutches. ICE & ELEVATION: Apply ice packs frequently against the painful area. Many different schedules are recommended, such as "20 minutes on, 20 minutes off" or "one hour ice, two hours rest." If you need to work, you may need to go longer between ice treatments. You should plan to have the area ice packed AT LEAST one- fourth of the time. The ice should be applied over the wrap, tape, or splint, or over a layer of cloth -- not directly against the skin. Some ice bags have a built-in cloth and can be put directly on the skin. Your injured part should be elevated as much as possible over the next 48 hours. Try to keep the injury above the level of the heart. Avoid use of the injured area. Elevation and rest will decrease the swelling. USE OF DYES-UBH-BVEHDMG IBUPROFEN: Ibuprofen (Advil, Nuprin, Medipren, Motrin IB) is a medication for fever and pain control. In addition, it has anti- inflammatory effects which may be beneficial, especially in the treatment of injuries. It's best to take ibuprofen with food. Persons with ulcer disease or allergy to aspirin should notify their physician of this before taking ibuprofen. Ibuprofen can be given every four to six hours, for a total of four doses daily. Age Pain or fever dose Antiinflammatory dose 6-8 yr 200 mg (1 tab) 200 mg (1 tab) 9-11 yr 200 mg (1 tab) 200-400 mg (1-2 tab) 11-14 yr 200-400 mg (1-2 tab) 400 mg (2 tab) 15-adult 400 mg (2 tab) 600 mg (3 tab) FOLLOW-UP CARE: If you have been referred to a physician for follow-up care, call the physician s office for an appointment as you were instructed or within the next two days. If you experience worsening or a significant change in your symptoms, notify the physician immediately or return to the Emergency Department at any time for re-evaluation. Forms: Elevated Blood Pressure, Return to Work Referrals: AUGUSTINE MUIR MD [Primary Care Provider] - Follow up as needed [facility] [Provider Group] - Follow up as needed
--- NOTE | 2018-03-29 17:41 | RADIOLOGY REPORT (SQ) ---
EXAM DESCRIPTION: ANKLE LEFT COMPLETE COMPLETED DATE/TIME: 03/29/2018 5:31 pm REASON FOR STUDY: Pain s/p fall . States that can't walk on it. COMPARISON: None. NUMBER OF VIEWS: Three views left ankle. LIMITATIONS: None. FINDINGS: Normal bone density. Maintained mortise. No effusion. Small relatively well-circumscrib ed calcification inferior to the lateral malleolus may represent an old avulsion. Mild soft tissue s welling about the ankle, however this looks more pronounced medially. OTHER: No other significant finding. IMPRESSION: As above. Suspect and old avulsive injury off the lateral malleolus. Mild soft tissue swelling. TECHNICAL DOCUMENTATION: JOB ID: [id number] Reading location - IP/workstation name: [email or web address]
== END 2018-03-29 18:00 | disposition home or self-care (01) ==
LOC: ER 17:01
PROC: 2W3RX1Z Immobilization of Left Lower Leg using Splint (ICD-10-PCS; principal; 2018-03-29)
DX: S93.402A Sprain of unspecified ligament of left ankle, initial encounter (principal); W10.9XXA Fall (on) (from) unspecified stairs and steps, initial encounter; Z88.0 Allergy status to penicillin; Z90.49 Acquired absence of other specified parts of digestive tract
CPT/HCPCS: 99283; 73610; L4350

== ENCOUNTER → 2018-04-18 | Outpatient (CLI) | payer OTHER ==
--- NOTE | 2018-04-18 14:58 | RADIOLOGY REPORT (SQ) ---
EXAM DESCRIPTION: CT ABD/PELVIS NO ORAL OR IV COMPLETED DATE/TIME: 04/18/2018 2:13 pm REASON FOR STUDY: MICROHEMATURIA R31.29 OTHER MICROSCOPIC HEMATURIA COMPARISON: None. TECHNIQUE: CT scan of the abdomen and pelvis performed without intravenous or oral contrast. Images reviewed with lung, soft tissue, and bone windows. Reconstructed coronal and sagittal MPR images revi ewed. All images stored on PACS. All CT scanners at this facility use dose modulation, iterative reconstruction, and/or weight based d osing when appropriate to reduce radiation dose to as low as reasonably achievable (ALARA). [facility]: Dose Right [facility]: CareDose [facility]: Dose Right [facility]: Teradose 4D [facility]: [employer] RADIATION DOSE: CT Rad equipment meets quality standard of care and radiation dose reduction techniq ues were employed. CTDIvol: 12.0 mGy. DLP: 694 mGy-cm.mGy. LIMITATIONS: None. FINDINGS: LOWER CHEST: No significant findings. No nodules or infiltrates. NON-CONTRASTED LIVER, SPLEEN, ADRENALS: Evaluation limited by lack of IV contrast. No identified sign ificant masses. PANCREAS: No masses. No peripancreatic inflammatory changes. GALLBLADDER: Surgically absent RIGHT KIDNEY AND URETER: No suspicious masses. Assessment limited by lack of IV contrast. No signif icant calcifications. No hydronephrosis or hydroureter. LEFT KIDNEY AND URETER: No suspicious masses. Assessment limited by lack of IV contrast. No signifi cant calcifications. No hydronephrosis or hydroureter. AORTA AND RETROPERITONEUM: No aneurysm. No retroperitoneal masses or adenopathy. BOWEL AND PERITONEAL CAVITY: No obvious masses or inflammatory changes. No free fluid. APPENDIX: Normal. PELVIS, BLADDER, AND ABDOMINAL WALL:No abnormal masses. No free fluid. Bladder normal. Normal size f emale pelvic organs. BONES: No significant findings. OTHER: No other significant finding. IMPRESSION: NO SIGNIFICANT OR ACUTE PROCESS IN THE ABDOMEN OR PELVIS. COMMENT: Quality ID # [id number]: Final reports with documentation of one or more dose reduction techniques (e.g., Automated exposure control, adjustment of the mA and/or kV according to patient size, use of iterative reconstruction technique) TECHNICAL DOCUMENTATION: JOB ID: [id number] [employer]- All Rights Reserved Reading location - IP/workstation name: [email or web address]
== END ==
LOC: RAD 13:56
PROVIDERS: ATTEND Urology
DX: R31.29 Other microscopic hematuria (principal)
CPT/HCPCS: 74176

== ENCOUNTER → 2018-04-29 | Outpatient (CLI) | payer OTHER ==
[2018-04-29 11:38] LABS: APPEARANCE,URINE SLIGHTLY-CLOUDY; BILIRUBIN,URINE NEGATIVE (NEGATIVE); CALCIUM OXALATE CRYSTALS,URINE FEW /HPF; COLOR,URINE YELLOW; GLUCOSE, URINE NEGATIVE (NEGATIVE); KETONES,URINE NEGATIVE (NEGATIVE); LEUKOCYTE ESTERASE,URINE LARGE (NEGATIVE); NITRITE,URINE NEGATIVE (NEGATIVE); PROTEIN,URINE NEGATIVE (NEGATIVE); URINE SPECIFIC GRAVITY 1.031
== END ==
LOC: OD 09:32
PROVIDERS: ATTEND Urology
DX: R31.29 Other microscopic hematuria (principal)
CPT/HCPCS: 81001

== ENCOUNTER 2018-05-03 15:13 | Emergency (ER) | payer OTHER ==
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
[2018-05-03 19:55] VITALS: BP 116/62
== END 2018-05-03 20:05 | disposition home or self-care (01) ==
LOC: ER 15:13
DX: S00.93XA Contusion of unspecified part of head, initial encounter (principal); S80.02XA Contusion of left knee, initial encounter; M79.1 Myalgia; H92.02 Otalgia, left ear; M25.562 Pain in left knee; V87.7XXA Person injured in collision between other specified motor vehicles (traffic), initial encounter
CPT/HCPCS: 70450; 99284

== ENCOUNTER 2019-03-25 19:39 | Observation (INO) | payer OTHER ==
[2019-03-25] MEDS ORDERED: ONDANSETRON HCL INJ/PF 4 MG/2 ML SDV IV ONE (20:55)
--- NOTE | 2019-03-25 20:57 | ER Document Report ---
ED Medical Screen (RME) - General Chief Complaint: Nausea Stated Complaint: NAUSEA Time Seen by Provider: 03/25/19 20:53 Primary Care Provider: AUGUSTINE MUIR MD [Primary Care Provider] - Follow up as needed Notes: Patient is 23-year-old female history of cholecystectomy presents to the emergency department for generalized nausea, vomiting for the last week. Patient states she is intermittently had right lower abdominal pain although currently is denying any pain. Patient states "it comes in waves." Patient's denying any diarrhea, fever, dysuria, vaginal discharge. GENERAL: Alert, interacts well. No acute distress. ABDOMEN: Soft, non-tender. Non-distended. Bowel sounds present in all 4 quadrants. I have greeted and performed a rapid initial assessment of this patient. A comprehensive ED assessment and evaluation of the patient, analysis of test results and completion of the medical decision making process will be conducted by additional ED providers. I have specifically instructed the patient or family members with the patient to immediately return to any nursing staff should anything change in the patient's condition or with their chief complaint. This medical record was dictated with voice recognizing software. There may be grammatical, syntax errors that are unintended. TRAVEL OUTSIDE OF THE [place] IN LAST 30 DAYS: No - Related Data Allergies/Adverse Reactions: amoxicillin Allergy (Verified 03/25/19 20:49) Past Medical History Renal/ Medical History: Denies: Hx Peritoneal Dialysis Musculoskeltal Medical History: Reports Hx Musculoskeletal Deformity, Reports Hx Musculoskeletal Trauma Past Surgical History: Reports: Hx Adenoidectomy, Hx Cholecystectomy, Hx Gynecologic Surgery - Nexplanon, Hx Myringotomy, Hx Orthopedic Surgery - knee surgery, Hx Tonsillectomy - Immunizations Immunizations up to date: Yes Hx Diphtheria, Pertussis, Tetanus Vaccination: Yes History of Influenza Vaccine for 06/2017 - 11/2017 Season: Yes Influenza Administration Date for 06/2017 - 11/2017 Season: 06/13/17 Physical Exam - Vital signs Vitals: Temp Pulse Resp BP Pulse Ox 98.4 F 79 15 129/68 H 100 03/25/19 19:48 03/25/19 19:48 03/25/19 19:48 03/25/19 19:48 03/25/19 19:48 Course - Vital Signs Vital signs: Temp Pulse Resp BP Pulse Ox 98.4 F 79 15 129/68 H 100 03/25/19 19:48 03/25/19 19:48 03/25/19 19:48 03/25/19 19:48 03/25/19 19:48 Doctor's Discharge - Discharge Referrals: AUGUSTINE MUIR MD [Primary Care Provider] - Follow up as needed
[2019-03-25 21:31] LABS: ABSOLUTE BASOPHILS # (AUTO) 0.1 10^3/uL (0.0-0.2); ABSOLUTE EOSINOPHILS # (AUTO) 0.2 10^3/uL (0.0-0.6); ABSOLUTE LYMPHOCYTES (AUTO) 4.5 10^3/uL (0.5-4.7); ABSOLUTE MONOCYTES (AUTO) 0.7 10^3/uL (0.1-1.4); ABSOLUTE NEUT (AUTO) 6.4 10^3/uL (1.7-8.2); BASOPHILS % (AUTO) 0.7 % (0-2); EOSINOPHILS % (AUTO) 1.5 % (0-6); HEMATOCRIT 36.1 % (36.0-47.0); MEAN CORPUSCULAR HEMOGLOBIN 29.1 pg (27.0-33.4); MEAN CORPUSCULAR HGB CONC 33.2 g/dL (32.0-36.0); MEAN CORPUSCULAR VOLUME 88 fl (80-97); PLATELET COUNT 353 10^3/uL (150-450); RED BLOOD COUNT 4.13 10^6/uL (3.72-5.28); RED CELL DISTRIBUTION WIDTH 13.7 % (11.5-14.0); SEGMENTED NEUTROPHILS % (AUTO) 53.8 % (42-78); TOTAL CELLS COUNTED % (AUTO) 100 %; WHITE BLOOD COUNT 11.9 10^3/uL (4.0-10.5)
[2019-03-25 21:46] LABS: APPEARANCE,URINE SLIGHTLY-CLOUDY; BILIRUBIN,URINE NEGATIVE (NEGATIVE); COLOR,URINE YELLOW; GLUCOSE, URINE NEGATIVE (NEGATIVE); KETONES,URINE NEGATIVE (NEGATIVE); LEUKOCYTE ESTERASE,URINE LARGE (NEGATIVE); NITRITE,URINE NEGATIVE (NEGATIVE); PROTEIN,URINE NEGATIVE (NEGATIVE); URINE SPECIFIC GRAVITY 1.016; UROBILINOGEN,URINE NEGATIVE mg/dL (<2.0)
[2019-03-25 21:51] LABS: ALANINE AMINOTRANSFERASE 56 U/L (9-52); ALBUMIN 4.4 g/dL (3.5-5.0); ALKALINE PHOSPHATASE 98 U/L (38-126); ANION GAP 11 (5-19); ASPARTATE AMINO TRANSFERASE 32 U/L (14-36); BILIRUBIN,DIRECT 0.2 mg/dL (0.0-0.4); BILIRUBIN,TOTAL 0.4 mg/dL (0.2-1.3); BLOOD UREA NITROGEN 12 mg/dL (7-20); CALCIUM 9.3 mg/dL (8.4-10.2); CARBON DIOXIDE 25 mmol/L (22-30); CHLORIDE 106 mmol/L (98-107); GLUCOSE 93 mg/dL (75-110); LIPASE 72.5 U/L (23-300); SODIUM 141.6 mmol/L (137-145); TOTAL PROTEIN 7.6 g/dL (6.3-8.2)
[2019-03-26] MEDS ORDERED: ONDANSETRON HCL INJ/PF 4 MG/2 ML SDV ONE ×2 (00:53→00:55)
[2019-03-26] MEDS ORDERED: METOCLOPRAMIDE HCL 10 MG TABLET PO ONE (00:59)
[2019-03-26] MEDS ORDERED: NITROFURANTOIN MONOHYD/M-CRYST 100 MG CAPSULE PO ONE (00:59)
--- NOTE | 2019-03-26 01:15 | ER Document Report ---
ED GI/ - General Chief Complaint: Nausea Stated Complaint: NAUSEA Time Seen by Provider: 03/25/19 20:53 Primary Care Provider: AUGUSTINE MUIR MD [ACTIVE STAFF] - Follow up as needed Mode of Arrival: Ambulatory Information source: Patient, Parent TRAVEL OUTSIDE OF THE [place] IN LAST 30 DAYS: No - HPI Patient complains to provider of: Abdominal pain - Right lower quadrant., Other - Nausea Onset: Last week Quality of pain: Dull Severity at maximum: Mild Severity in ED: Mild Pain Level: 1 Location: RLQ Vaginal bleeding (Compared to normal period): None OB ultrasound done: No vitamins taken: No Sexual history: Active Associated symptoms: Nausea Exacerbated by: Denies Relieved by: Denies Similar symptoms previously: No Recently seen / treated by doctor: No - Related Data Allergies/Adverse Reactions: amoxicillin Allergy (Verified 03/25/19 20:49) Past Medical History - General Information source: Patient - Social History Smoking Status: Never Smoker Family History: DM, Hypertension Patient has suicidal ideation: No Patient has homicidal ideation: No Renal/ Medical History: Denies: Hx Peritoneal Dialysis Musculoskeletal Medical History: Reports Hx Musculoskeletal Deformity, Reports Hx Musculoskeletal Trauma Past Surgical History: Reports: Hx Adenoidectomy, Hx Cholecystectomy, Hx Gynecologic Surgery - Nexplanon, Hx Myringotomy, Hx Orthopedic Surgery - knee surgery, Hx Tonsillectomy - Immunizations Immunizations up to date: Yes Hx Diphtheria, Pertussis, Tetanus Vaccination: Yes Review of Systems - Review of Systems Constitutional: No symptoms reported EENT: No symptoms reported Cardiovascular: No symptoms reported Respiratory: No symptoms reported Gastrointestinal: Abdominal pain - Right lower quadrant., Nausea Genitourinary: No symptoms reported Female Genitourinary: No symptoms reported Musculoskeletal: No symptoms reported Skin: No symptoms reported Hematologic/Lymphatic: No symptoms reported Neurological/Psychological: No symptoms reported -: Yes All other systems reviewed and negative Physical Exam - Vital signs Vitals: Temp Pulse Resp BP Pulse Ox 98.4 F 79 15 129/68 H 100 03/25/19 19:48 03/25/19 19:48 03/25/19 19:48 03/25/19 19:48 03/25/19 19:48 Interpretation: Normal - General General appearance: Appears well, Alert In distress: None - HEENT Head: Normocephalic, Atraumatic Eyes: Normal Pupils: PERRL - Respiratory Respiratory status: No respiratory distress Chest status: Nontender Breath sounds: Normal Chest palpation: Normal - Cardiovascular Rhythm: Regular Heart sounds: Normal auscultation Murmur: No - Abdominal Inspection: Normal Distension: No distension Bowel sounds: Normal Tenderness: Tender - Right lower quadrant tenderness to palpation. Organomegaly: No organomegaly - Back Back: Normal, Nontender - Extremities General upper extremity: Normal inspection, Nontender, Normal color, Normal ROM, Normal temperature General lower extremity: Normal inspection, Nontender, Normal color, Normal ROM, Normal temperature, Normal weight bearing. No: Don's sign - Neurological Neuro grossly intact: Yes Cognition: Normal Orientation: AAOx4 Kevin Coma Scale Eye Opening: Spontaneous [place] Coma Scale Verbal: Oriented Kevin Coma Scale Motor: Obeys Commands Kevin Coma Scale Total: 15 Speech: Normal Motor strength normal: LUE, RUE, LLE, RLE Sensory: Normal - Psychological Associated symptoms: Normal affect, Normal mood - Skin Skin Temperature: Warm Skin Moisture: Dry Skin Color: Normal Course - Re-evaluation Re-evalutation: 03/26/19 03:01 I discussed with the patient her lab results and the results of the transvaginal ultrasound. I also informed her that she will be admitted to the hospital for REJECTOR evaluation. Patient understood and is in agreement for this admission. - Vital Signs Vital signs: Temp Pulse Resp BP Pulse Ox 98.9 F 86 17 116/67 97 03/26/19 02:40 03/26/19 02:40 03/26/19 02:40 03/26/19 02:40 03/26/19 02:40 - Laboratory Result Diagrams: 03/25/19 21:08 03/25/19 21:08 Laboratory results interpreted by me: 03/25/19 03/25/19 03/25/19 21:08 21:08 21:08 WBC 11.9 H Creatinine 0.50 L ALT 56 H Beta HCG, Quant Ur Leukocyte Esterase LARGE H Urine Ascorbic Acid 20 H Urine HCG, Qual POSITIVE H 03/25/19 21:08 WBC Creatinine ALT Beta HCG, Quant 336.89 H Ur Leukocyte Esterase Urine Ascorbic Acid Urine HCG, Qual - Diagnostic Test Radiology reviewed: Reports reviewed Radiology results interpreted by me: 03/26/19 03:01 Transvaginal ultrasound showed a complex cyst cyst at the right adnexa and no IUP. This is concerning for ectopic . - Transfer of Care Notes: 03/26/19 03:02 I consulted the REJECTOR doctor plant production worker Dr Davidson Bee and he wants patient admitted in the hospital for further evaluation regarding concern for ectopic . Discharge - Discharge Clinical Impression: Early stage of UTI (urinary tract infection) Qualifiers: Urinary tract infection type: acute cystitis Hematuria presence: without hematuria Qualified Code(s): N30.00 - Acute cystitis without hematuria Abdominal pain Qualifiers: Abdominal location: right lower quadrant Qualified Code(s): R10.31 - Right lower quadrant pain Condition: Stable Disposition: ADMITTED INPATIENT Admitting Provider: Dr Davidson Bee. Unit Admitted: Labor and Delivery Referrals: AUGUSTINE MUIR MD [ACTIVE STAFF] - Follow up as needed
--- NOTE | 2019-03-26 02:39 | RADIOLOGY REPORT (SQ) ---
EXAM: US Pelvis Transvaginal CLINICAL DATA: 23-year-old female with right lower quadrant pain and positive TECHNICAL DATA: Ultrasound imaging of the pelvis was performed endovaginally on 03/26/2019 at 1:23 AM. COMPARISONS: None FINDINGS: The uterus is normal in size, shape and echogenicity and measures 9.0 x 5.0 x 6.0 cm. There is no evidence of an intrauterine gestational sac. The cervix measures 2.8 cm in length. There is a small focal avascular area of decreased echogenicity within the right-sided the uterus which measures 1.0 x 1.1 x 1.3 cm. The right ovary measures 3.9 x 3.3 x 3.1 cm. The right ovary contains a complex cyst measuring 2.6 x 2.0 x 2.3 cm.. Doppler imaging demonstrates normal pulsed and color Doppler flow. The left ovary measures 3.2 x 1.7 x 1.6 cm. The left ovary is normal in size, shape and echogenicity. Doppler imaging demonstrates normal pulsed and color Doppler flow. There is no free fluid in the pelvis. IMPRESSION: 1. No evidence of an intrauterine gestational sac. 2. Complex cyst arising from the right ovary with a maximum dimension of 2.6 cm. Correlate with beta hCG. In the absence of an intrauterine gestational sac, an ectopic is not excluded at this time. 3. Small nonspecific avascular cystic area along the right side of the uterus measuring 1.3 cm in maximum dimension.
[2019-03-26] MEDS ORDERED: NORMAL SALINE 1000 ML 1,000 ML IV PRN (05:03)
[2019-03-26 11:23] VITALS: BP 118/59
--- NOTE | 2019-03-26 14:43 | Discharge Summary ---
Discharge Summary (SDC) - Discharge Final Diagnosis: abdominal pain Discharge Date: 03/26/19 Condition: Stable Forms: Discharge POC-Adult Referrals: [facility] [Provider Group] (Follow up in 1 week) Discharge Diet: As Tolerated Discharge Activity: Activity As Tolerated Home Care Assistance: None Needed Report the Following to Your Physician Immediately: Increase in Pain, Fever over 101 Degrees, Unusual Bleeding
--- NOTE | 2019-03-27 14:49 | HISTORY AND PHYSICAL E ---
History and Physical NAME: MARGY ARVIZU : 1995 AGE: 23Y ADMITTED: 03/26/2019 ROOM: 228 HISTORY OF PRESENT CONDITION: The patient is a 23-year-old, 2, para 1-0-0-1 (last menstrual period unsure), who presented to the emergency room with nausea, vomiting, and cramping. She was found to be with a beta of 337. Ultrasound revealed a right ovarian cyst measuring 2.6 x 2.0 x 2.3 cm, with an empty uterus. She denied vaginal bleeding. MEDICAL/SURGICAL HISTORY: 1. Cholecystectomy in 2013. 2. Right knee surgery in 2012. 3. Tonsillectomy as a child. OBSTETRICS HISTORY: Normal spontaneous vaginal delivery in 2017. GYNECOLOGIC HISTORY: Menarche age 14 or 15, irregular cycles. Denies dysmenorrhea. ALLERGIES: AMOXICILLIN. SOCIAL HISTORY: The patient denies. There is no tobacco or drug use. REVIEW OF SYSTEMS: All systems were reviewed and were negative other than what was noticed in the History of Present Condition. PHYSICAL EXAMINATION: VITALS: Afebrile, stable. GENERAL: A well-developed, well-nourished, young female in no distress. HEENT: Head: Normocephalic, atraumatic. Eyes: Pupils equal, round, react to light and accommodate. Extraocular movements intact. Ears: Both TMs visible with good landmarks. Nose: Moist mucosa. Midline septum. Throat: Normal pharynx. Good dentition. NECK: Supple. No adenopathy. No thyromegaly. LUNGS: Clear to auscultation bilaterally. HEART: Regular rate and rhythm. No murmurs. ABDOMEN: Slightly obese, soft, nontender. No masses. No organomegaly. MUSCULOSKELETAL: Good range of motion all joints. Good strength. No CVA tenderness. NEUROLOGIC: Grossly intact, without focal deficits. EXTREMITIES: Distal pulses are symmetric bilaterally. No edema. PELVIC: Deferred. IMPRESSION/PLAN: Early intrauterine versus ectopic. The patient was admitted. Will follow beta hCGs to determine if a viable versus ectopic. DICTATING PHYSICIAN: KYLIE CAMPOS M.D. [id number] PHY#: [id number] ID: [id number] JOB#: [id number] ACCT: [id number] cc:Manny CHASE
== END 2019-03-26 13:16 | disposition home or self-care (01) ==
LOC: ER 19:39 → INTOOBSV 03-26 03:17 → EH 03-26 03:17 → 2S 03-26 04:35
PROVIDERS: ADMIT Obstetrics & Gynecology; ATTEND Obstetrics & Gynecology
DX: O26.899 Other specified pregnancy related conditions, unspecified trimester (principal); R10.31 Right lower quadrant pain; O34.80 Maternal care for other abnormalities of pelvic organs, unspecified trimester; N83.201 Unspecified ovarian cyst, right side; O23.10 Infections of bladder in pregnancy, unspecified trimester; Z90.49 Acquired absence of other specified parts of digestive tract
CPT/HCPCS: 99284; 86900; 86901; 36415 ×2; 87086; 86850; 84702; 83690; 85025; 81025; 80053; 81001; 76817; 93976; G0378 ×2; J8499

== ENCOUNTER → 2019-04-26 | Outpatient (CLI) | payer MEDICAID ==
--- NOTE | 2019-04-26 15:52 | RADIOLOGY REPORT (SQ) ---
EXAM DESCRIPTION: U/S [id number] TRNABD 1GES W/ODOP COMPLETED DATE/TIME: 04/26/2019 3:40 pm REASON FOR STUDY: Z34.81 ENCOUNTER FOR SUPRVSN OF NORMAL , FIRST TRIMESTER Z34.81 ENCOUNTE R FOR SUPRVSN OF NORMAL , FIRST TRIM COMPARISON: None. TECHNIQUE: Transabdominal static and realtime grayscale images acquired of the pelvis. Additional se lected spectral and color Doppler images recorded. All images stored on PACs. CG: Not available. CLINICAL DATES: LMP 02/25/2019. 8 weeks 4 days. LIMITATIONS: None. FINDINGS: FETUS: Single Living intrauterine . ULTRASOUND EGA: 8 weeks 4 days ULTRASOUND LUIZA: 12/02/2019 EFW: Not applicable less than 20 weeks. CRL: 2 cm FHR: 178 beats per minute. SURVEY: No visualized anomalies. AMNIOTIC FLUID: Adequate amount. PLACENTA: Not yet developed. SUBCHORIONIC BLEED: No SIZE OF BLEED: Not applicable. UTERUS: No masses. No anomalies. CERVICAL LENGTH: 3.1 cm. Closed. RIGHT ADNEXA: Normal ovary with normal vascular flow. 4.1 x 2.9 x 2.8 cm. There is a 2.5 cm corpus luteum. No adnexal free fluid. No adnexal masses. LEFT ADNEXA: Ovary not seen. No adnexal free fluid. No adnexal masses. FREE FLUID: None. OTHER: No other significant finding. IMPRESSION: LIVING INTRAUTERINE . EGA 8 weeks 4 days. Trimester of : First trimester - 0 to 13 weeks. TECHNICAL DOCUMENTATION: JOB ID: [id number]- All Rights Reserved rev Reading location - IP/workstation name: [email or web address]
== END ==
LOC: RAD 14:01
PROVIDERS: ATTEND Midwife
DX: Z34.81 Encounter for supervision of other normal pregnancy, first trimester (principal)
CPT/HCPCS: 76801

== ENCOUNTER 2019-11-14 22:18 | Inpatient (IN) | payer MEDICAID ==
[2019-11-14 23:01] LABS: APPEARANCE,URINE SLIGHTLY-CLOUDY; BILIRUBIN,URINE NEGATIVE (NEGATIVE); COLOR,URINE YELLOW; GLUCOSE, URINE NEGATIVE (NEGATIVE); KETONES,URINE TRACE mg/dL (NEGATIVE); LEUKOCYTE ESTERASE,URINE TRACE (NEGATIVE); NITRITE,URINE NEGATIVE (NEGATIVE); PROTEIN,URINE 30 mg/dL (NEGATIVE); URINE SPECIFIC GRAVITY 1.024; UROBILINOGEN,URINE NEGATIVE mg/dL (<2.0)
[2019-11-14] MEDS ORDERED: MAG HYDROX/AL HYDROX/SIMETH SUSP 30 ML UDCUP PO ONE (23:01)
[2019-11-14 23:19] LABS: URINE AMPHETAMINES SCREEN NEGATIVE; URINE BARBITURATES SCREEN NEGATIVE; URINE BENZODIAZEPINES SCREEN NEGATIVE; URINE COCAINE SCREEN NEGATIVE; URINE MARIJUANA (THC) SCREEN NEGATIVE; URINE METHADONE SCREEN NEGATIVE; URINE PHENCYCLIDINE SCREEN NEGATIVE
[2019-11-14 23:38] LABS: ABSOLUTE EOSINOPHILS # (AUTO) 0.1 10^3/uL (0.0-0.6); ABSOLUTE LYMPHOCYTES (AUTO) 3.6 10^3/uL (0.5-4.7); ABSOLUTE MONOCYTES (AUTO) 0.7 10^3/uL (0.1-1.4); ABSOLUTE NEUT (AUTO) 7.6 10^3/uL (1.7-8.2); BASOPHILS % (AUTO) 0.3 % (0-2); HEMATOCRIT 33.2 % (36.0-47.0); HEMOGLOBIN 11.6 g/dL (12.0-15.5); LYMPHOCYTES % (AUTO) 30.2 % (13-45); MEAN CORPUSCULAR HEMOGLOBIN 31.1 pg (27.0-33.4); MEAN CORPUSCULAR VOLUME 89 fl (80-97); MONOCYTES % (AUTO) 5.8 % (3-13); PLATELET COUNT 293 10^3/uL (150-450); RED BLOOD COUNT 3.73 10^6/uL (3.72-5.28); SEGMENTED NEUTROPHILS % (AUTO) 62.7 % (42-78); TOTAL CELLS COUNTED % (AUTO) 100 %; WHITE BLOOD COUNT 12.1 10^3/uL (4.0-10.5)
[2019-11-14] MEDS ORDERED: MAG HYDROX/AL HYDROX/SIMETH SUSP 30 ML UDCUP ONE (23:40)
[2019-11-14] MEDS ORDERED: ONDANSETRON HCL INJ/PF 4 MG/2 ML SDV ONE (23:40)
[2019-11-15] MEDS ORDERED: RINGERS SOLUTION,LACTATED 1,000 ML IV PRN (02:49)
[2019-11-15] MEDS ORDERED: RINGERS SOLUTION,LACTATED 1,000 ML IV ONE (02:49)
[2019-11-15] MEDS ORDERED: OXYTOCIN/NORMAL SALINE 20 UNIT/1,000 ML RTUINJ ONE (04:59)
[2019-11-15] MEDS ORDERED: OXYTOCIN 10 UNIT/ML VIAL ONE (04:59)
[2019-11-15] MEDS ORDERED: MISOPROSTOL 0.2 MG TABLET ONE (04:59)
[2019-11-15] MEDS ORDERED: LIDOCAINE 1% INJ-PF (10 MG/ML) 30 ML SDV ONE (04:59)
[2019-11-15] MEDS ORDERED: ONDANSETRON HCL INJ/PF 4 MG/2 ML SDV ONE ×2 (05:05→09:00)
[2019-11-15] MEDS: ONDANSETRON HCL INJ/PF 4 MG/2 ML SDV IV PRN ×2 (05:09→09:02)
[2019-11-15] MEDS ORDERED: OXYTOCIN/NORMAL SALINE 20 UNIT/1,000 ML RTUINJ IV PRN ×2 (09:22→12:01)
--- NOTE | 2019-11-15 09:22 | Admission Physical ---
Datetime Report Generated by CPN: 11/15/2019 09:21 CURRENT ADMISSION Hx Assessment: The History has been Reviewed and is Current Chief Complaint: Uterine Contractions Indication for Induction: Not Applicable Admit Impression : Term, Intrauterine ; No Active Labor Admit Impression- Other: prodormal labor per DrLinda Madrigal Admit Plan: Admit to Unit; Initiate Labor Augmentation Protocol ALLERGIES Medication Allergies: Yes Medication Allergies: amoxicillin (11/14/2019) Latex: No Latex Allergies OBSTETRICAL HISTORY EDC: 12/02/2019 00:00 : 2 Para: 1 Term: 0 : 1 SAB: 0 IAB: 0 Ectopic: 0 Livin Cesareans: 0 VBACs: 0 Multiple Births: 0 Gestational Diabetes: No Rh Sensitization: No Incompetent Cervix: No OLGA: No Infertility: No ART Treatment: No Uterine Anomaly: No IUGR: No Hx Previous C/S: No Macrosomia: No Hx Loss/Stillborn: No PIH: No Hx : No Placenta Previa/Abruption: No Depression/PP Depression: No PTL/PROM: No Post Hemorrhage: No Current Procedures: Ultrasound Obstetrical History Comments: G1- at 32 weeks, 2017 G2- current SEE RECORDS Alcohol: No Marijuana : No Cocaine: No Other Illicit Drugs: No Cigarettes: Never Smoker. 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 Surgery: No Heart Disease: No Hosp/Surgery: No Autoimmune Disorder: No Anesthetic Complications: No Kidney Disease: No Abnormal Pap Smear: No Neuro/Epilepsy: No Psychiatric Disorders: No Other Medical Diseases: No Hepatitis/Liver Disease: No Significant Family History: No Varicosities/Phlebitis: No Trauma/Violence : No Thyroid Dysfunction: No INFECTIOUS HISTORY Gonorrhea: No Genital Herpes: No Chlamydia: No Tuberculosis: No Syphilis: No Hepatitis: No HIV/AIDS Exposure: No Rash or Viral Illness: No HPV: No Infectious History Comments: pos gc/chlam 05/09, ARISTEO 10/2 neg/neg PHYSICAL EXAM General: Normal Heart: Normal Lungs: Normal Back: Normal Abdomen: Normal Genitourinary Exam: Normal Extremities: Normal Physical Exam Comments: proven to 4lbs 5 oz Vital Signs: Reviewed; Within Normal Limits VAGINAL EXAM Contraction Comments: irregular MEMBRANES Membranes: Ruptured Amniotic Fluid Color: Clear FETUS A EGA: 37.4 Monitoring: External US FHR Category: Category I Presentation: Vertex Admit Comment: 23yo at 37w4d presented to L_D last night with UC and admitted after small cervical change. Pt was rechecked this AM and found to be slightly more dilated and then AROM ed by Dr. Madrigal and will be augmented with pitocin at this time. Pt is GBS negative, O positive, Rubella immune with positive gonorrhea and chlamydia at NOB and negative ARISTEO. Hx also significant for delivery at 32w with chorio. No other significant hx. Plan is to start pitocin at this time, epidural prn. PLANS FOR LABOR AND DELIVERY Labor and Delivery: None Pain Management: Natural Feeding Preference: Formula Benefit of Breast Feed Discussed: Yes Circumcision: N/A INFORMED CONSENT Assignment: Kaia Tejada MD Signature: with User ID: Vivienne : with User ID: [email or web address]
[2019-11-15] MEDS ORDERED: MORPHINE SULFATE 10 MG/ML INJ ONE ×2 (10:23→11:10)
[2019-11-15] MEDS ORDERED: MORPHINE SULFATE 10 MG/ML INJ IV ONE (11:00)
[2019-11-15] MEDS ORDERED: PHENYLEPHRINE HCL INJ/PF 10 MG/1 ML SDV ONE (11:16)
[2019-11-15] MEDS ORDERED: EPHEDRINE SULFATE INJ 50 MG/1 ML AMPULE ONE (11:16)
[2019-11-15] MEDS ORDERED: FENTANYL CITRATE INJ/PF 100 MCG/2 ML AMPUL ONE (11:16)
[2019-11-15] MEDS ORDERED: FENTANYL/BUPIVACAINE/NS/PF 0 MCG/0 ML RTUINJ EPI ONE (11:17)
[2019-11-15] MEDS ORDERED: BUPIVACAINE HCL 0.25 % INJ/PF (2.5 MG/1 ML) 30 ML VIAL ONE (11:17)
[2019-11-15] MEDS ORDERED: BENZOCAINE/MENTHOL AEROSOL SPRAY 56 ML TOP PRN (12:01)
[2019-11-15] MEDS ORDERED: NA PHOS,M-B/NA PHOS,DI-BA (ADULT) 133 ML ENEMA PR PRN (12:01)
[2019-11-15] MEDS ORDERED: PROMETHAZINE HCL 25 MG TABLET PO PRN (12:01)
[2019-11-15] MEDS ORDERED: MAGNESIUM HYDROXIDE SUSP 30 ML UDCUP PO PRN (12:01)
[2019-11-15] MEDS ORDERED: MEASLES,MUMPS&RUBELLA VACC/PF 0.5 ML VIAL SUBCUT PRN (12:01)
[2019-11-15] MEDS ORDERED: DIPHENHYDRAMINE HCL 25 MG CAPSULE PO PRN (12:01)
[2019-11-15] MEDS ORDERED: DIPH/PERTUSS(ACELL)/TETANUS VAC/PF 0.5 ML SYR (>=10YO) IM PRN (12:01)
[2019-11-15] MEDS ORDERED: GLYCERIN/WITCH HAZEL LEAF 1 EACH MED..WIPE TP PRN (12:01)
[2019-11-15] MEDS ORDERED: PROMETHAZINE HCL INJ 25 MG/1 ML VIAL IV PRN (12:01)
[2019-11-15] MEDS ORDERED: PROMETHAZINE HCL 25 MG SUPP.RECT PR PRN (12:01)
[2019-11-15] MEDS ORDERED: ACETAMINOPHEN 325 MG TABLET PO PRN (12:01)
[2019-11-15] MEDS ORDERED: PSEUDOEPHEDRINE HCL 30 MG TABLET PO PRN (12:01)
[2019-11-15] MEDS ORDERED: DIBUCAINE 1% OINTMENT 28 GM TP PRN (12:01)
--- NOTE | 2019-11-15 12:56 | Delivery Summary ---
Del Sum A-C Datetime Report Generated by CPN: 11/15/2019 12:56 DELIVERY PERSONNEL DELIVERY PERSONNEL: [id number] Delivery Doctor:: Nivia Almeida CNM Nurse Media Analyst Certified:: Nivia Almeida CNM Labor and Delivery Nurse:: Lyndsey Regan RNgreen building design specialist Nurse:: RENARD Zhu Nursery Nurse:: Eugenio Steen RN Hoisting Machine Operator/AG: Eve Pastrana, ST MATERNAL INFORMATION Delivery Anesthesia: None Medications After Delivery: Pitocin Bolus-Please Comment Meds After Delivery Comment: 20 Units Pitocin/1000 ml NS Delivery QBL: 50 Delivery QBL Comment: 50ml Maternal Complications: Precipitous Labor (<3hrs) Provider Comments: Called into room pt c/c/3 with urge to push. Bed prepped then quickly delivered head but pt stopped pushing and refused to resume. Discussed importance of continuing to push for delivery of body, anterior shoulder delivered followed by body. Baby with vigorous respiratory effort and cry with tactile stimulation then placed on maternal abdomen. Cord allowed to stop pulsating then clamped x2 and cut by FOB (cord blood obtained, 3vc noted). Placenta delivered spontaneously intact, fundus firm, no lacerations and abrasions as stated. Minimal bleeding, mother and baby remain skin to skin and bonding and stable at this time. LABOR SUMMARY EDC: 12/02/2019 00:00 No. Babies in Womb: 1 Attempted: No Labor Anesthesia: IV Sedation LABOR INFORMATION Reason for Induction: Not Applicable Onset of Labor: 11/15/2019 08:44 Complete Dilatation: 11/15/2019 11:25 Oxytocin: Augmentation Group B Beta Strep: negative Antibiotics # of Doses: 0 Antibiotics Time of Last Dose: n/a Name of Antibiotic Given: n/a Steroids Given: None Reason Steroids Not Administered: Not Applicable MEMBRANES Membranes Rupture Method: Artificial Rupture of Membranes: 11/15/2019 08:44 Length of Rupture (hr): 2.80 Amniotic Fluid Color: Clear Amniotic Fluid Amount: n/a Amniotic Fluid Odor: Normal STAGES OF LABOR Stage 1 hr: 2 Stage 1 min: 41 Stage 2 hr: 0 Stage 2 min: 7 Stage 3 hr: 0 Stage 3 min: 6 Total Time in Labor hr: 2 Total Time in Labor min: 54 VAGINAL DELIVERY Episiotomy: None Laceration #1: None Laceration Extension #1: N/A Other Laceration: vaginal and labial abrasions-hemostatic no need for repair Laceration Repair: Not Applicable Sponge Count Correct: N/A Sharps Count Correct: N/A CSECTION DELIVERY Uterine Closure: Single-layer closure BABY A INFORMATION Delivery Date/Time: 11/15/2019 11:32 Method of Delivery: Vaginal Nurse Controlled Delivery: No Born in Route : No : N/A Forceps: N/A Vacuum Extraction: N/A Shoulder Dystocia : No PRESENTATION/POSITION BABY A Presentation: Cephalic Cephalic Presentation: Vertex Vertex Position: Left Occipital Anterior Breech Presentation: N/A PLACENTA INFORMATION BABY A Placenta Delivery Time : 11/15/2019 11:38 Placenta Method of Delivery: Spontaneous Placenta Status: Delivered SCORES BABY A Heart Rate 1 min: >100 bpm Resp Effort 1 min: Good Cry Reflex Irritability 1 min: Cough or Sneeze or Pulls Away Muscle Tone 1 min: Active Motion Color 1 min: Blue/Pale Resuscitation Effort 1 min: Tactile Stimulation SCORE 1 MIN: 8 Heart Rate 5 min: >100 bpm Resp Effort 5 min: Good Cry Reflex Irritability 5 min: Cough or Sneeze or Pulls Away Muscle Tone 5 min: Active Motion Color 5 min: Body [place], Extremities Blue Resuscitation Effort 5 min: Tactile Stimulation SCORE 5 MIN: 9 INFORMATION BABY A Gestational Age at Delivery: 37.4 Gestational Status: Early Term- 37- 38.6 Weeks Outcome : Liveborn Infant Condition : Stable Infant Sex: Female IDENTIFICATION BABY A Infant Verification Date/Time: 11/15/2019 11:43 ID Band Number: [id number] Mother's Name Verified: Yes Infant RN Verifying Infant: Eugenio Steen, RN/ A. Jass, RN WEIGHT/LENGTH BABY A Birthweight (gm): 3217 Infant Weight (lb): 7 Infant Weight (oz): 1 Infant Length (in): 19.25 Length (cm): 48.90 CORD INFORMATION BABY A No. Cord Vessels: 3 Nuchal Cord : N/A Cord Blood Taken: Yes-For Eval (Mom's Blood Type - or O+) Suction: None ASSESSMENT BABY A Complications: None Physical Findings at Delivery: Within Normal Limits Infant Respirations: Appears Normal Skin to Skin: Yes Photography Manager/ALS Called : No Care By: RLinda Souleymanejonathan, RN Transferred To: Remains with Mother BABY B INFORMATION : N/A SIGNATURES Assignment: Kaia Tejada MD Signature: with User ID: Vivienne : with User ID: Vivienne
[2019-11-15] MEDS: IBUPROFEN 800 MG TABLET PO SCH ×2 (15:21→21:42)
[2019-11-15] MEDS: DOCUSATE SODIUM 100 MG CAPSULE PO SCH (17:34)
[2019-11-15] MEDS: FERROUS SULFATE 325 MG TABLET PO SCH (17:34)
[2019-11-15] MEDS: FAMOTIDINE 20 MG TABLET PO SCH (21:42)
[2019-11-16] MEDS: IBUPROFEN 800 MG TABLET PO SCH ×3 (07:49→22:12)
[2019-11-16 08:12] LABS: HEMATOCRIT 34.1 % (36.0-47.0); HEMOGLOBIN 11.4 g/dL (12.0-15.5); MEAN CORPUSCULAR HEMOGLOBIN 30.3 pg (27.0-33.4); MEAN CORPUSCULAR HGB CONC 33.5 g/dL (32.0-36.0); MEAN CORPUSCULAR VOLUME 90 fl (80-97); PLATELET COUNT 259 10^3/uL (150-450); RED BLOOD COUNT 3.77 10^6/uL (3.72-5.28); RED CELL DISTRIBUTION WIDTH 14.2 % (11.5-14.0); WHITE BLOOD COUNT 11.8 10^3/uL (4.0-10.5)
[2019-11-16] MEDS: FERROUS SULFATE 325 MG TABLET PO SCH ×2 (09:57→17:20)
[2019-11-16] MEDS: DOCUSATE SODIUM 100 MG CAPSULE PO SCH ×2 (09:57→17:20)
[2019-11-16] MEDS: PRENATAL VITAMIN W DHA CAPSULE PO SCH (09:57)
[2019-11-16] MEDS: SENNOSIDES/DOCUSATE 8.6-50 MG 1 EACH TABLET PO SCH (09:57)
--- NOTE | 2019-11-16 10:35 | PDOC PROGRESS REPORT ---
Subjective-OB Progress Note for:: 11/16/19 Subjective: reports bleeding slowing, pain controlled with current meds. denies needs Physical Exam (OB) Vital Signs: Temp Pulse Resp BP Pulse Ox 97.7 F 68 16 139/86 H 100 11/16/19 07:41 11/16/19 07:41 11/16/19 07:41 11/16/19 07:41 11/16/19 07:41 Intake & Output 11/15/19 11/16/19 11/17/19 06:59 06:59 06:59 Intake Total 320 Balance 320 Weight 114.6 kg - Abdomen Description: Soft, Round Hernia Present: No Fundal Description: Firm, Midline Fundal Height: u/u - u/2 - Abdominal Distension: No distension Tenderness: Nontender - Extremities Lower extremities: Don's sign - neg Calf: Normal, Nontender Objective-Diagnostic Laboratory: 11/16/19 07:47 11/16/19 07:47 WBC 11.8 H RBC 3.77 Hgb 11.4 L Hct 34.1 L MCV 90 MCH 30.3 MCHC 33.5 RDW 14.2 H Plt Count 259 Assessment and Plan(PN) - Time Spent with Patient Time with patient: Less than 15 minutes - Disposition Anticipated Discharge: Home Within: within 24 hours
[2019-11-16] MEDS: FAMOTIDINE 20 MG TABLET PO SCH ×2 (13:49→22:12)
[2019-11-17] MEDS: IBUPROFEN 800 MG TABLET PO SCH (05:33)
[2019-11-17 08:24] VITALS: BP 113/59
--- NOTE | 2019-11-17 08:53 | PDOC PROGRESS REPORT ---
Subjective-OB Progress Note for:: 11/17/19 Subjective: Doing well, ready to go home, female, bottle feeding, wearing bra, scant lochia,no c/o Physical Exam (OB) Vital Signs: Temp Pulse Resp BP Pulse Ox 98.1 F 71 16 113/59 L 100 11/17/19 07:31 11/17/19 07:31 11/17/19 07:31 11/17/19 07:31 11/17/19 07:31 Intake & Output 11/16/19 11/17/19 11/18/19 06:59 06:59 06:59 Intake Total 920 Balance 920 - PIH/Pre-Eclampsia Clonus: Negative Headache: Absent Epigastric Pain: No Visual Changes: No - Lochia Lochia Amount: Small 10-25 ml Lochia Color: Rubra/Red - Abdomen Description: Soft Hernia Present: No Fundal Description: Firm, Midline Fundal Height: u/u - u/2 Objective-Diagnostic Laboratory: 11/16/19 07:47 Assessment and Plan(PN) - Assessment and Plan (1) Delivery normal Is this a current diagnosis for this admission?: Yes (2) Active labor at term Is this a current diagnosis for this admission?: Yes - Time Spent with Patient Time with patient: Less than 15 minutes Medications reviewed and adjusted accordingly: Yes - Disposition Anticipated Discharge: Home Within: within 24 hours
[2019-11-17] MEDS: PRENATAL VITAMIN W DHA CAPSULE PO SCH (10:04)
[2019-11-17] MEDS: SENNOSIDES/DOCUSATE 8.6-50 MG 1 EACH TABLET PO SCH (10:04)
[2019-11-17] MEDS: FAMOTIDINE 20 MG TABLET PO SCH (10:04)
[2019-11-17] MEDS: DOCUSATE SODIUM 100 MG CAPSULE PO SCH (10:04)
[2019-11-17] MEDS: FERROUS SULFATE 325 MG TABLET PO SCH (10:04)
--- NOTE | 2019-11-17 10:26 | PDOC DISCHARGE SUMMARY ---
Impression - Admit/DC Date/PCP Admission Date/Primary Care Provider: 11/15/19 02:52 PATRICIA ATWOOD MD Discharge Date: 11/17/19 - Discharge Diagnosis (1) Delivery normal Is this a current diagnosis for this admission?: Yes (2) Active labor at term Is this a current diagnosis for this admission?: Yes - Additional Information Resuscitation Status: Full Code Discharge Diet: As Tolerated, Regular Discharge Activity: Activity As Tolerated, Pelvic Rest Referrals: [facility] [Provider Group] (a 4 weeks) Home Medications: Vitamin [-U Multiple Vitamin Capsule] 1 cap PO DAILY 11/14/19 HPI Gestational Age: 37.4 Reason(s) for Admission: Onset of Labor Procedures: Ultrasound Intrapartum Procedure(s): Spontaneous Vaginal Delivery - wt 7-1, apgars 8/9, vaginal abrasions Hospital Course Hospital Course: routine Results Laboratory Results: WBC 11.8 10^3/uL (4.0-10.5) H 11/16/19 07:47 RBC 3.77 10^6/uL (3.72-5.28) 11/16/19 07:47 Hgb 11.4 g/dL (12.0-15.5) L 11/16/19 07:47 Hct 34.1 % (36.0-47.0) L 11/16/19 07:47 MCV 90 fl (80-97) 11/16/19 07:47 MCH 30.3 pg (27.0-33.4) 11/16/19 07:47 MCHC 33.5 g/dL (32.0-36.0) 11/16/19 07:47 RDW 14.2 % (11.5-14.0) H 11/16/19 07:47 Plt Count 259 10^3/uL (150-450) 11/16/19 07:47 Lymph % (Auto) 30.2 % (13-45) 11/14/19 23:11 [place] % (Auto) 5.8 % (3-13) 11/14/19 23:11 Eos % (Auto) 1.0 % (0-6) 11/14/19 23:11 Baso % (Auto) 0.3 % (0-2) 11/14/19 23:11 Absolute Neuts (auto) 7.6 10^3/uL (1.7-8.2) 11/14/19 23:11 Absolute Lymphs (auto) 3.6 10^3/uL (0.5-4.7) 11/14/19 23:11 Absolute Monos (auto) 0.7 10^3/uL (0.1-1.4) 11/14/19 23:11 Absolute Eos (auto) 0.1 10^3/uL (0.0-0.6) 11/14/19 23:11 Absolute Basos (auto) 0.0 10^3/uL (0.0-0.2) 11/14/19 23:11 Seg Neutrophils % 62.7 % (42-78) 11/14/19 23:11 Urine Color YELLOW 11/14/19 22:15 Urine Appearance SLIGHTLY-CLOUDY 11/14/19 22:15 Urine pH 5.0 (5.0-9.0) 11/14/19 22:15 Ur Specific [place] 1.024 11/14/19 22:15 Urine Protein 30 mg/dL (NEGATIVE) H 11/14/19 22:15 Urine Glucose (UA) NEGATIVE mg/dL (NEGATIVE) 11/14/19 22:15 Urine Ketones TRACE mg/dL (NEGATIVE) H 11/14/19 22:15 Urine Blood NEGATIVE (NEGATIVE) 11/14/19 22:15 Urine Nitrite NEGATIVE (NEGATIVE) 11/14/19 22:15 Urine Bilirubin NEGATIVE (NEGATIVE) 11/14/19 22:15 Urine Urobilinogen NEGATIVE mg/dL (<2.0) 11/14/19 22:15 Ur Leukocyte Esterase TRACE (NEGATIVE) H 11/14/19 22:15 Urine Ascorbic Acid 40 (NEGATIVE) H 11/14/19 22:15 Urine Opiates Screen NEGATIVE 11/14/19 22:15 Urine Methadone Screen NEGATIVE 11/14/19 22:15 Ur Barbiturates Screen NEGATIVE 11/14/19 22:15 Ur Phencyclidine Scrn NEGATIVE 11/14/19 22:15 Ur Amphetamines Screen NEGATIVE 11/14/19 22:15 U Benzodiazepines Scrn NEGATIVE 11/14/19 22:15 Urine Cocaine Screen NEGATIVE 11/14/19 22:15 U Marijuana (THC) Screen NEGATIVE 11/14/19 22:15 RPR NONREACTIVE (NONREACTIVE) 11/14/19 23:11 Blood Type O POSITIVE 11/14/19 23:11 Antibody Screen NEGATIVE 11/14/19 23:11 Plan Health Concerns: routine Plan of Treatment: take vitamins, routine care Goals: routine, [facility] 4 weeks Time Spent: Less than 30 Minutes
== END 2019-11-17 13:55 | disposition home or self-care (01) | DRG 807 ==
LOC: LC 22:18 → LR 11-15 02:52 → 2S 11-15 14:00
PROVIDERS: ADMIT Student in an Organized Health Care Education/Training Program; ATTEND Student in an Organized Health Care Education/Training Program
PROC: 10E0XZZ Delivery of Products of Conception, External Approach (ICD-10-PCS; principal; 2019-11-15)
PROC: 10907ZC Drainage of Amniotic Fluid, Therapeutic from Products of Conception, Via Natural or Artificial Opening (ICD-10-PCS; 2019-11-15)
DX: O62.3 Precipitate labor (principal); Z37.0 Single live birth; O70.0 First degree perineal laceration during delivery; Z3A.37 37 weeks gestation of pregnancy; Z88.0 Allergy status to penicillin; Z86.19 Personal history of other infectious and parasitic diseases
CPT/HCPCS: 36415; 80307; 81005; 85025; 85027; 86592; 86850; 86900; 86901; J2270; J2370; J2405; J2590; J3010; J3490

== ENCOUNTER 2020-06-18 21:39 | Emergency (ER) | payer OTHER, MEDICAID ==
--- NOTE | 2020-06-18 23:32 | ER Document Report ---
ED Medical Screen (RME) - General Chief Complaint: Ankle Pain Stated Complaint: RIGHT ANKLE PAIN Time Seen by Provider: 06/18/20 23:20 Primary Care Provider: PATRICIA ATWOOD MD [Primary Care Provider] - Follow up as needed Mode of Arrival: Wheelchair Information source: Patient Notes: 24-year-old female presented to ED for complaint of pain to the right ankle lateral aspect. She states she was at a customer's house and the customer sidewalk was very irregular with holes in it and it was dark. She states it was about 830 when she fell on the sidewalk injuring her right ankle. She does have a very swollen painful tender right ankle. She is 8 weeks . She is 3 para 2. She is does have a history of torn cartilage in the knee cholecystectomy and tonsils and adenoids removed. She is alert oriented respirations regular nonlabored speaking in full sentences. She states she is already had Tylenol. I have greeted and performed a rapid initial assessment of this patient. A comprehensive ED assessment and evaluation of the patient, analysis of test results and completion of medical decision making process will be conducted by an additional ED providers. TRAVEL OUTSIDE OF THE [place] IN LAST 30 DAYS: No - Related Data Allergies/Adverse Reactions: amoxicillin Allergy (Verified 11/14/19 22:30) Past Medical History - Past Medical History Cardiac Medical History: Denies: Hx Congestive Heart Failure, Hx Heart Attack, Hx Hypertension Pulmonary Medical History: Denies: Hx Asthma, Hx Bronchitis, Hx COPD, Hx Pneumonia, Hx Tuberculosis Neurological Medical History: Denies: Hx Parkinson's Disease Renal/ Medical History: Denies: Hx End Stage Renal Disease, Hx Kidney Stones, Hx Peritoneal Dialysis GI Medical History: Denies: Hx Cirrhosis, Hx Gastroesophageal Reflux Disease, Hx Ulcer Musculoskeltal Medical History: Denies Hx Arthritis, Denies Hx Multiple Sclerosis, Reports Hx Musculoskeletal Deformity, Reports Hx Musculoskeletal Trauma Psychiatric Medical History: Denies: Hx Bipolar Disorder, Hx Depression, Hx Schizophrenia Past Surgical History: Reports: Hx Adenoidectomy, Hx Cholecystectomy, Hx Gynecologic Surgery - Nexplanon, Hx Myringotomy, Hx Orthopedic Surgery - knee surgery, Hx Tonsillectomy - Immunizations Immunizations up to date: Yes Hx Diphtheria, Pertussis, Tetanus Vaccination: Yes Physical Exam - Vital signs Vitals: Temp Pulse Resp BP Pulse Ox 98.5 F 98 18 131/70 H 99 06/18/20 22:16 06/18/20 22:16 06/18/20 22:16 06/18/20 22:16 06/18/20 22:16 Course - Vital Signs Vital signs: Temp Pulse Resp BP Pulse Ox 98.5 F 98 18 131/70 H 99 06/18/20 22:16 06/18/20 22:16 06/18/20 22:16 06/18/20 22:16 06/18/20 22:16 Doctor's Discharge - Discharge Referrals: PATRICIA ATWOOD MD [Primary Care Provider] - Follow up as needed
--- NOTE | 2020-06-19 00:56 | RADIOLOGY REPORT (SQ) ---
EXAM DESCRIPTION: XR ANKLE 3 OR MORE VIEWS COMPLETED DATE/TME: 06/18/2020 23:29 CLINICAL INDICATION: 24-year-old female status post fall with swelling. TECHNIQUE: Three views RIGHT ankle were obtained in AP, lateral and oblique projections. COMPARISON: None. FINDINGS: There is no fracture or dislocation. The joint spaces are preserved. Diffuse soft tissue swelling of the lateral malleolus. IMPRESSION: Diffuse soft tissue swelling of the lateral malleolus without fracture or dislocation.
--- NOTE | 2020-06-19 02:10 | ER Document Report ---
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 Denies falling and hurting her abdomen. Denies any vaginal discharge. No bleeding, no pelvic pain or abdominal pain. She is complaining of right lateral ankle pain and swelling. History of previous fractures. States is able to walk but is painful. - REPRODUCTIVE LMP: 04/25/20 Reproductive: REPORTS: : Past Medical History - General Information source: Patient - Social History Smoking Status: Never Smoker Frequency of alcohol use: None Drug Abuse: None Family History: DM, Hypertension - Past Medical History Cardiac Medical History: Denies: Hx Congestive Heart Failure, Hx Heart Attack, Hx Hypertension Pulmonary Medical History: Denies: Hx Asthma, Hx Bronchitis, Hx COPD, Hx Pneumonia, Hx Tuberculosis Neurological Medical History: Denies: Hx Parkinson's Disease Renal/ Medical History: Denies: Hx End Stage Renal Disease, Hx Kidney Stones, Hx Peritoneal Dialysis GI Medical History: Denies: Hx Cirrhosis, Hx Gastroesophageal Reflux Disease, Hx Ulcer Musculoskeletal Medical History: Denies Hx Arthritis, Denies Hx Multiple Sclerosis, Reports Hx Musculoskeletal Deformity, Reports Hx Musculoskeletal Trauma Psychiatric Medical History: Denies: Hx Bipolar Disorder, Hx Depression, Hx Schizophrenia Past Surgical History: Reports: Hx Adenoidectomy, Hx Cholecystectomy, Hx Gynecologic Surgery - Nexplanon, Hx Myringotomy, Hx Orthopedic Surgery - knee surgery, Hx Tonsillectomy - Immunizations Immunizations up to date: Yes Hx Diphtheria, Pertussis, Tetanus Vaccination: Yes Vertical Provider Document - CONSTITUTIONAL Agree With Documented VS: Yes Exam Limitations: No Limitations General Appearance: Mild Distress - INFECTION CONTROL TRAVEL OUTSIDE OF THE [place] IN LAST 30 DAYS: No - HEENT HEENT: Atraumatic, Normocephalic - NECK Neck: Normal Inspection, Supple, Thyroid Normal - RESPIRATORY Respiratory: Breath Sounds Normal, No Respiratory Distress, Chest Non-Tender - CARDIOVASCULAR Cardiovascular: Regular Rate, Regular Rhythm, No Murmur - MUSCULOSKELETAL/EXTREMETIES Musculoskeletal/Extremeties: Tender - Right lateral malleus tender to palpation with moderate swelling. There is painful range of motion with flexion, extension, eversion and inversion of the right ankle. - NEURO Level of Consciousness: Awake, Alert, Appropriate Motor/Sensory: No Motor Deficit, No Sensory Deficit Notes: Positive right pedal pulse. Able to ambulate with limping noted to right leg. - DERM Integumentary: Warm, Dry, No Rash Course - Re-evaluation Re-evalutation: 06/19/20 02:25 Patient's resting comfortably x-ray results were reviewed with the patient. She was counseled to rest, ice, elevate her ankle. Can remove Aircast for sleeping and bathing. Ambulatory with limping noted to right leg. Counseled to follow- up with orthopedics if not improving in 2 to 3 days she is aware she needs to get approval from Worker[employer]. prior to the following up with on-call Ortho. Tylenol as needed for pain. Crutches were offered she refused. Patient was given strict return to the emergency room guidelines. Return for any new or worsening symptoms. All questions were answered. Patient verbalized understanding and agrees with plan of care. 06/19/20 07:51 - Vital Signs Vital signs: Temp Pulse Resp BP Pulse Ox 98.8 F 96 18 133/74 H 96 06/19/20 01:18 06/19/20 01:18 06/18/20 22:16 06/19/20 01:18 06/19/20 01:18 - Diagnostic Test Radiology reviewed: Reports reviewed Procedures - Immobilization Right Ankle Time completed: 02:26 Pre-Proc Neuro Vasc Exam: Normal Immobilizer type: Ankle stirrup - Velcro Aircast Performed by: TRACIE Post-Proc Neuro Vasc Exam: Normal Alignment checked and good: Yes Discharge - Discharge Clinical Impression: Right ankle sprain Qualifiers: Encounter type: initial encounter Involved ligament of ankle: unspecified ligament Qualified Code(s): S93.401A - Sprain of unspecified ligament of right ankle, initial encounter Condition: Stable Disposition: HOME, SELF-CARE Instructions: Ankle Stirrup Splint ([facility]), Sprained Ankle ([facility]) Additional Instructions: Rest, ice 20 minutes on 20 minutes off. Elevate leg as much as possible. Outpatient follow-up with orthopedics as discussed. Follow-up through employer for Worker's Comp. referral. Tylenol as needed for pain. Your x-ray does not show any acute fracture. You have a sprained ankle. Keep the area elevated, apply ice 20 minutes every 2 hours, and use crutches as needed. . Please return if you have worsening pain and swelling, fever greater than 101, you notice spreading redness from the area, or have any other symptoms that are concerning to you. Please follow-up with orthopedic surgery if your symptoms have not improved in the next 2-3 days Forms: Return to Work Referrals: PATRICIA ATWOOD MD [ACTIVE STAFF] - Follow up as needed URBAN LANZA DO [ACTIVE STAFF] - Follow up as needed
[2020-06-19 07:28] VITALS: BP 135/80
== END 2020-06-19 02:45 | disposition home or self-care (01) ==
LOC: ER 21:39
DX: O26.91 Pregnancy related conditions, unspecified, first trimester (principal); S93.401A Sprain of unspecified ligament of right ankle, initial encounter; X50.0XXA Overexertion from strenuous movement or load, initial encounter; Y99.0 Civilian activity done for income or pay; Z3A.08 8 weeks gestation of pregnancy
CPT/HCPCS: 99283